=== PATIENT | female | born 1975 | race African-American/Black ===

== ENCOUNTER 2016-08-14 14:10 | Emergency (ER) | payer OTHER ==
[~2016-08-14] VITALS: Ht 165.1 cm; Wt 54.4 kg
[~2016-08-14 14:10] MED LIST: ASPIRIN81 MG ORAL; ATARAX50 MG ORAL; DOCUSATE SODIU100 MG ORAL; FEOSOL325 MG ORAL; FEOSOL325 MG PO; HYDROMORPHONE HC2 M1 PO; LISINOPRIL10 MG ORAL; LISINOPRIL2.5 MG ORAL; LISINOPRIL20 MG ORAL; PLAQUENIL200 MG ORAL; PRAVACHOL20 MG ORAL; PREDNISONE10 MG ORAL; PREDNISONE20 MG ORAL; SENOKOT1 TAB ORAL; TRAMADOL HCL50 MG ORAL; TYLENOL325 MG ORAL; TYLENOL650 MG/20. ORAL
--- NOTE | 2016-08-14 14:14 | Emergency Room Report ---
History of Present Illness General Chief Complaint: Dyspnea/Respdistress Source: Patient Present Illness HPI The patient presents with dyspnea exertion orthopnea and some resting shortness of breath. She has a history of congestive heart failure she was seen at [facility] few days ago. She's been admitted to the hospital for this in the past. At that time she had a lot of joint pain and also dyspnea. Denies any swelling or mass or calf pain. She's not had a fever or productive cough. Is a slight amount of chest pain at this time that is constant and more pressure. Not taking medication for lupus. She complains she can't sleep because of this problem. Anxious. No fevers, productive cough. No dysuria, NVD. Appetite has been poor. She admits to smoking but denies drugs (see tox). Allergies: Coded Allergies: MORPHINE (Unverified Adverse Reaction, Unknown, 08/14/16) Uncoded Allergies: MORPHINE? (Allergy, Unknown, 08/14/16) Patient History Past Medical History: see triage record Social History: Reports: drug use - denies but see tox, smoking Social History Narrative at home Reviewed Nursing Documentation: PMH: Agreed, PSxH: Agreed Nursing Documentation-PMH Past Medical History: No History, Except For Hx Hypertension: Yes Hx Asthma: Yes Hx Cancer: No Hx Gastrointestinal Problems: No Hx Neurological Problems: No Review of Systems All Other Systems: negative except mentioned in HPI Physical Exam Vital Signs Date Time Temp Pulse Resp B/P Pulse Ox O2 Delivery O2 Flow Rate FiO2 08/14/16 14:00 98.2 76 16 168/122 97 Room Air Sp02 EP Interpretation: reviewed, normal General Appearance: well appearing, no apparent distress, GCS 15 Head: normocephalic, other - old forehead scars Eyes: bilateral eye PERRL, bilateral eye normal inspection ENT: moist mucus membranes Neck: supple Respiratory: no respiratory distress, crackles, rales Cardiovascular #1: regular rate, rhythm, no JVD Cardiovascular #2: 2+ radial (R) Gastrointestinal: normal inspection, normal bowel sounds, non tender, no mass, non-distended Musculoskeletal: back normal, gait/station normal, normal range of motion Neurologic: alert, oriented x3, grossly normal Psychiatric: no suicidal/homicidal ideation, anxious Skin: normal inspection, warm/dry Medical Decision Making Diagnostic Impression: Primary Impression: CHF (congestive heart failure) Qualified Codes: I50.33 - Acute on chronic diastolic (congestive) heart failure Additional Impressions: Polysubstance abuse HTN (hypertension) Qualified Codes: I10 - Essential (primary) hypertension ER Course Patient presents with dyspnea and chest pain. She has a history of heart failure. Differential includes bronchitis, viral syndrome, congestive heart failure, acute myocardial infarction, acute coronary syndrome amongst others. This could also be pericarditis associated with lupus. Emergent evaluation is undertaken with EKG, chest x-ray, labs. The patient will be treated initially with nitroglycerin paste and fentanyl. CXR with CHF and inc cor. + drug screen. Lasix ordered. HTN noted and lisinopril ordered. Discussed abuse with patient. Mostly denial. Accepted by Dr. Rehman at [facility]. Transfer. Laboratory Tests Test 08/14/16 14:17 White Blood Count 3.3 K/UL (4.8-10.8) L Red Blood Count 3.81 M/UL (4.20-5.40) L Hemoglobin 8.0 G/DL (12.0-16.0) L Hematocrit 27.7 % (37.0-47.0) L Mean Corpuscular Volume 73 FL (80-99) L Mean Corpuscular Hemoglobin 21.0 PG (27.0-31.0) L Mean Corpuscular Hemoglobin Concent 28.9 G/DL (32.0-36.0) L Red Cell Distribution Width 17.4 % (11.6-14.8) H Platelet Count 250 K/UL (150-450) Mean Platelet Volume 8.6 FL (6.5-10.1) Neutrophils (%) (Auto) % (45.0-75.0) Lymphocytes (%) (Auto) % (20.0-45.0) Monocytes (%) (Auto) % (1.0-10.0) Eosinophils (%) (Auto) % (0.0-3.0) Basophils (%) (Auto) % (0.0-2.0) Differential Total Cells Counted 100 Neutrophils % (Manual) 63 % (45-75) Lymphocytes % (Manual) 30 % (20-45) Monocytes % (Manual) 4 % (1-10) Eosinophils % (Manual) 3 % (0-3) Basophils % (Manual) 0 % (0-2) Band Neutrophils 0 % (0-8) Platelet Estimate Adequate Platelet Morphology Normal Hypochromasia 2+ Anisocytosis 2+ Microcytosis 1+ Ovalocytes Occasional Prothrombin Time 10.7 SEC (9.30-11.50) Prothrombin Time INR 1.1 (0.9-1.1) PTT 25 SEC (23-33) Urine Color Red Urine Appearance Very cloudy Urine pH 6 (4.5-8.0) Urine Specific D[place]el 1.015 (1.005-1.035) Urine Protein 4+ (NEGATIVE) H Urine Glucose (UA) Negative (NEGATIVE) Urine Ketones Negative (NEGATIVE) Urine Occult Blood 5+ (NEGATIVE) H Urine Nitrite Negative (NEGATIVE) Urine Bilirubin Negative (NEGATIVE) Urine Urobilinogen Normal MG/DL (0.0-1.0) Urine Leukocyte Esterase 1+ (NEGATIVE) H Urine RBC Tntc /HPF (0 - 2) H Urine WBC 2-4 /HPF (0 - 2) Urine Squamous Epithelial Cells None /LPF (NONE/OCC) Urine Bacteria Few /HPF (NONE) Urine HCG, Qualitative Negative Sodium Level 141 mEQ/L (135-145) Potassium Level 4.0 mEQ/L (3.4-4.9) Chloride Level 102 mEQ/L (98-107) Carbon Dioxide Level 24 mEQ/L (20-30) Anion Gap 15 (5-15) Blood Urea Nitrogen 22 mg/dL (7-23) Creatinine 0.9 mg/dL (0.5-0.9) Estimate Glomerular Filtration Rate > 60 mL/min (>60) Glucose Level 104 mg/dL (74-106) Calcium Level 8.5 mg/dL (8.6-10.2) L Total Bilirubin < 0.2 mg/dL (0.0-1.2) Aspartate Amino Transferase (AST) 84 U/L (5-40) H Alanine Aminotransferase (ALT) 56 U/L (3-33) H Alkaline Phosphatase 124 U/L (35-104) H Total Creatine Kinase 51 U/L (26-140) Troponin I < 0.30 ng/mL (<=0.30) Pro-B-Type Natriuretic Peptide 3680 pg/mL (0-125) H Total Protein 7.3 g/dL (6.6-8.7) Albumin 3.0 g/dL (3.5-5.2) L Globulin 4.3 g/dL Albumin/Globulin Ratio 0.6 (1.0-2.7) L Urine Opiates Screen Negative (NEGATIVE) Urine Barbiturates Screen Negative (NEGATIVE) Phencyclidine (PCP) Screen Positive (NEGATIVE) H Urine Amphetamines Screen Negative (NEGATIVE) Urine Benzodiazepines Screen Negative (NEGATIVE) Urine Cocaine Screen Positive (NEGATIVE) H Urine Marijuana (THC) Screen Negative (NEGATIVE) EKG Diagnostic Results Rate: normal Rhythm: NSR ST Segments: no acute changes - NSSTTW changes Rhythm Strip Diag. Results EP Interpretation: yes Rhythm: NSR, no PVC's, no ectopy Chest X-Ray Diagnostic Results EP Interpretation: Yes Findings: no effusion, no pneumothorax, other - CHF and inc cor Number of Views: 1 Last Vital Signs Date Time Temp Pulse Resp B/P Pulse Ox O2 Delivery O2 Flow Rate FiO2 08/14/16 17:25 98.2 82 24 150/102 100 Room Air Status: improved Disposition: XFER [facility] - [facility] Condition: Serious - but stable for transfer Dada Best M.D. Aug 14, 2016 14:14
[2016-08-14 14:15] VITALS: BP 165/114
[2016-08-14] MEDS ORDERED: fentaNYL 100 mcg/2 mL IV ONE ×2 (14:15→16:15)
[2016-08-14] MEDS ORDERED: Nitroglycerin 2% oint pkt TOPIC ONE (14:15)
[2016-08-14 14:29] LABS: MEAN CORPUSCULAR HGB CONC 28.9 G/DL (32.0-36.0); MEAN CORPUSCULAR VOLUME 73 FL (80-99); MEAN PLATELET VOLUME 8.6 FL (6.5-10.1); PLATELET COUNT 250 K/UL (150-450); RED BLOOD COUNT 3.81 M/UL (4.20-5.40); RED CELL DISTRIBUTION WIDTH 17.4 % (11.6-14.8); WHITE BLOOD COUNT 3.3 K/UL (4.8-10.8)
[2016-08-14 14:40] LABS: INR 1.1 (0.9-1.1); PROTHROMBIN TIME 10.7 SEC (9.30-11.50)
[2016-08-14 14:44] LABS: ALANINE AMINOTRANSFERASE 56 U/L (3-33); ALBUMIN/GLOBULIN RATIO 0.6 (1.0-2.7); ANION GAP 15 (5-15); ASPARTATE AMINO TRANSFERASE 84 U/L (5-40); CALCIUM 8.5 mg/dL (8.6-10.2); CARBON DIOXIDE 24 mEQ/L (20-30); CHLORIDE 102 mEQ/L (98-107); CREATININE 0.9 mg/dL (0.5-0.9); GLOMERULAR FILTRATION RATE > 60 mL/min (>60); HEMOLYSIS 1; SODIUM 141 mEQ/L (135-145); TOTAL PROTEIN 7.3 g/dL (6.6-8.7); TROPONIN I < 0.30 ng/mL (<=0.30)
[2016-08-14 15:09] LABS: BAND NEUTROPHILS % (MANUAL) 0 % (0-8); BASOPHILS % (MANUAL) 0 % (0-2); EOSINOPHILS % (MANUAL) 3 % (0-3); LYMPHOCYTES % (MANUAL) 30 % (20-45); NEUTROPHILS % (MANUAL) 63 % (45-75); PLATELET ESTIMATE ADEQUATE; PLATELET MORPHOLOGY NORMAL; TOTAL CELLS COUNTED 100
[2016-08-14 15:10] LABS: HYPOCHROMASIA 2+; MICROCYTES 1+
[2016-08-14 15:11] LABS: ANISOCYTOSIS 2+; OVALOCYTES OCCASIONAL
[2016-08-14] MEDS ORDERED: Lisinopril 10mg tab ORAL ONE (15:15)
[2016-08-14 15:36] LABS: APPEARANCE,URINE VERY CLOUDY; KETONES,URINE NEGATIVE (NEGATIVE); LEUKOCYTE ESTERASE ,URINE 1+ (NEGATIVE); NITRITE,URINE NEGATIVE (NEGATIVE); PH,URINE 6 (4.5-8.0); PROTEIN,URINE 4+ (NEGATIVE); UROBILINOGEN,URINE NORMAL MG/DL (0.0-1.0)
[2016-08-14 15:52] LABS: RBC,URINE TNTC /HPF (0 - 2)
[2016-08-14 15:53] LABS: BACTERIA,URINE FEW /HPF
[2016-08-14 16:01] VITALS: BP 165/132
--- NOTE | 2016-08-14 16:30 | Diagnostic Imaging Report ---
Indications: Shortness of breath Technique: Portable AP chest Findings: Comparison: 03/06/16 Cardiac silhouette remains enlarged. Pulmonary vascular redistribution, bilateral interstitial infiltrates, bibasal pleural effusions have increased. Increased prominence of right pleural fissure. Left lower lung linear density has decreased. IMPRESSION: Increase in bilateral congestive changes Decrease in left lower lung subsegmental atelectasis
[2016-08-14 17:13] VITALS: BP 150/102
[2016-08-14 17:25] VITALS: BP 150/102
--- NOTE | 2016-08-15 16:26 | Cardiology Report ---
APPROVED REPORT EKG Measurement Heart [id number] Normal sinus rhythm Possible Left atrial enlargement T wave abnormality, consider lateral ischemia Prolonged QT Abnormal ECG
== END 2016-08-14 17:25 | disposition short-term general hospital (02) ==
LOC: EDBD 14:10 → EMR 14:45
DX: I50.33 Acute on chronic diastolic (congestive) heart failure (principal); I10 Essential (primary) hypertension; F19.10 Other psychoactive substance abuse, uncomplicated; R07.9 Chest pain, unspecified; Z88.6 Allergy status to analgesic agent; J45.909 Unspecified asthma, uncomplicated; F17.200 Nicotine dependence, unspecified, uncomplicated
CPT/HCPCS: 36415; 71010; 80053; 80300; 81003; 81025; 82550; 83880; 84484; 85007; 85025; 85610; 85730; 93005; 96374; 96375; 99285; J1940; J3010

== ENCOUNTER 2016-10-08 15:32 | Inpatient (IN) | payer OTHER ==
[~2016-10-08] VITALS: Ht 167.6 cm; Wt 60.3 kg
[2016-10-08] MEDS ORDERED: Nitroglycerin Subl 0.4mg tab (Bottle Of 25) SL PRN ×2 (16:00→20:30)
[2016-10-08] MEDS ORDERED: Aspirin Baby 81mg ORAL ONE (16:00)
[2016-10-08 16:16] LABS: BASOPHILS % (AUTO) 0.4 % (0.0-2.0); EOSINOPHILS % (AUTO) 1.1 % (0.0-3.0); LYMPHOCYTES % (AUTO) 10.3 % (20.0-45.0); MEAN CORPUSCULAR HEMOGLOBIN 21.5 PG (27.0-31.0); MEAN CORPUSCULAR HGB CONC 29.8 G/DL (32.0-36.0); MEAN CORPUSCULAR VOLUME 72 FL (80-99); MEAN PLATELET VOLUME 7.8 FL (6.5-10.1); MONOCYTES % (AUTO) 3.7 % (1.0-10.0); NEUTROPHILS % (AUTO) 84.6 % (45.0-75.0); PLATELET COUNT 280 K/UL (150-450); RED BLOOD COUNT 4.06 M/UL (4.20-5.40); RED CELL DISTRIBUTION WIDTH 17.2 % (11.6-14.8); WHITE BLOOD COUNT 6.1 K/UL (4.8-10.8)
[2016-10-08 16:22] VITALS: BP 192/120
[2016-10-08 16:23] LABS: TROPONIN I < 0.30 ng/mL (<=0.30)
[2016-10-08 16:26] LABS: ALANINE AMINOTRANSFERASE 37 U/L (3-33); ALBUMIN/GLOBULIN RATIO 0.7 (1.0-2.7); ANION GAP 14 (5-15); ASPARTATE AMINO TRANSFERASE 32 U/L (5-40); CARBON DIOXIDE 24 mEQ/L (20-30); CHLORIDE 102 mEQ/L (98-107); CREATININE 1.1 mg/dL (0.5-0.9); GLOMERULAR FILTRATION RATE > 60 mL/min (>60); HEMOLYSIS 1; POTASSIUM 3.9 mEQ/L (3.4-4.9); SODIUM 140 mEQ/L (135-145); TOTAL PROTEIN 6.1 g/dL (6.6-8.7)
[2016-10-08] MEDS ORDERED: LORazepam Inj 2mg/ml 1ml IV ONE ×2 (16:30→19:30)
[2016-10-08 16:37] LABS: CKMB 2.4 ng/mL (< 3.8)
--- NOTE | 2016-10-08 16:40 | Emergency Room Report ---
History of Present Illness General Chief Complaint: Chest Pain Source: Patient Present Illness HPI Patient is a 41-year-old female who presented after increased chest pain. Patient gradual onset of symptoms of the past few hours. Patient stated that she woke up approximately 7 AM with chest pain. Patient had prior history of cocaine induced chest pain as well as congestive heart failure. Patient prior history of anemia secondary to lupus. The patient reported being noncompliant with her medications. Patient stated that she recently been on a diuretic in the past. She denied taking her blood pressure medications Allergies: Coded Allergies: MORPHINE (Unverified Adverse Reaction, Unknown, 08/14/16) Patient History Past Medical History: see triage record Now: No Reviewed Nursing Documentation: PMH: Agreed, PSxH: Agreed Nursing Documentation-PMH Hx Cardiac Problems: Yes Hx Hypertension: Yes Hx Pacemaker: No Hx Asthma: No Hx Diabetes: No Hx Cancer: No Hx Gastrointestinal Problems: No Hx Dialysis: No History Of Psychiatric Problem: No Hx Neurological Problems: No Hx Cerebrovascular Accident: No Hx Seizures: No Review of Systems All Other Systems: negative except mentioned in HPI Physical Exam Vital Signs Date Time Temp Pulse Resp B/P Pulse Ox O2 Delivery O2 Flow Rate FiO2 10/08/16 15:43 99.0 92 16 180/103 98 Room Air Sp02 EP Interpretation: reviewed, normal General Appearance: normal inspection, well appearing, no apparent distress, alert, GCS 15, non-toxic Head: atraumatic ENT: normal ENT inspection, hearing grossly normal, normal voice Neck: normal inspection, full range of motion, supple, no bony tend Respiratory: normal inspection, no respiratory distress, no retraction, rales Cardiovascular #1: regular rate, rhythm, no edema Gastrointestinal: normal inspection, normal bowel sounds, non tender, soft, no guarding, no hernia Genitourinary: no CVA tenderness Musculoskeletal: normal inspection, back normal, normal range of motion Neurologic: normal inspection, alert, oriented x3, 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, 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 A chest after one view interpreted by me showed cardiac enlargement with fluid in the fissure there is no evident mediastinal widening. Patient was given IV Lasix as well as nitroglycerin. The patient's urine drug screen was noted be positive for cocaine as well as PCP. The patient was given nitrates as well as aspirin. The patient noted have evidence of cardiac failure on chest x-ray. The patient was given IV Lasix for fluid overload. Laboratory testing was notable for anemia which is unchanged from patient's previous. The patient had additional IV doses of Lasix and Ativan ordered which the patient refused . patient discussed with Dr. mejia for inpatient management of patient's congestive heart failure as well as Uncontrolled hypertension. Labs Test 10/08/16 15:50 White Blood Count 6.1 K/UL (4.8-10.8) Red Blood Count 4.06 M/UL (4.20-5.40) Hemoglobin 8.7 G/DL (12.0-16.0) Hematocrit 29.3 % (37.0-47.0) Mean Corpuscular Volume 72 FL (80-99) Mean Corpuscular Hemoglobin 21.5 PG (27.0-31.0) Mean Corpuscular Hemoglobin Concent 29.8 G/DL (32.0-36.0) Red Cell Distribution Width 17.2 % (11.6-14.8) Platelet Count 280 K/UL (150-450) Mean Platelet Volume 7.8 FL (6.5-10.1) Neutrophils (%) (Auto) 84.6 % (45.0-75.0) Lymphocytes (%) (Auto) 10.3 % (20.0-45.0) Monocytes (%) (Auto) 3.7 % (1.0-10.0) Eosinophils (%) (Auto) 1.1 % (0.0-3.0) Basophils (%) (Auto) 0.4 % (0.0-2.0) Urine HCG, Qualitative Negative Sodium Level 140 mEQ/L (135-145) Potassium Level 3.9 mEQ/L (3.4-4.9) Chloride Level 102 mEQ/L (98-107) Carbon Dioxide Level 24 mEQ/L (20-30) Anion Gap 14 (5-15) Blood Urea Nitrogen 21 mg/dL (7-23) Creatinine 1.1 mg/dL (0.5-0.9) Estimat Glomerular Filtration Rate > 60 mL/min (>60) Glucose Level 149 mg/dL (74-106) Calcium Level 8.0 mg/dL (8.6-10.2) Total Bilirubin < 0.2 mg/dL (0.0-1.2) Aspartate Amino Transf (AST/SGOT) 32 U/L (5-40) Alanine Aminotransferase (ALT/SGPT) 37 U/L (3-33) Alkaline Phosphatase 148 U/L (35-104) Total Creatine Kinase 105 U/L (26-140) Creatine Kinase MB 2.4 ng/mL (< 3.8) Creatine Kinase MB Relative Index 2.2 Troponin I < 0.30 ng/mL (<=0.30) Pro-B-Type Natriuretic Peptide 3080 pg/mL (0-125) Total Protein 6.1 g/dL (6.6-8.7) Albumin 2.7 g/dL (3.5-5.2) Globulin 3.4 g/dL Albumin/Globulin Ratio 0.7 (1.0-2.7) Urine Opiates Screen Negative (NEGATIVE) Urine Barbiturates Screen Negative (NEGATIVE) Phencyclidine (PCP) Screen Positive (NEGATIVE) Urine Amphetamines Screen Negative (NEGATIVE) Urine Benzodiazepines Screen Negative (NEGATIVE) Urine Cocaine Screen Positive (NEGATIVE) Urine Marijuana (THC) Screen Negative (NEGATIVE) EKG Diagnostic Results Rate: normal Rhythm: NSR ST Segments: other - lateral t wave inversion Rhythm Strip Diag. Results EP Interpretation: yes Rhythm: NSR, no PVC's, no ectopy Chest X-Ray Diagnostic Results EP Interpretation: Yes Findings: no effusion, no pneumothorax, other - cardiomegaly Number of Views: 1 Last Vital Signs Date Time Temp Pulse Resp B/P Pulse Ox O2 Delivery O2 Flow Rate FiO2 10/08/16 16:22 98.0 78 18 192/120 98 Room Air Status: unchanged Disposition: ADMITTED INPATIENT Condition: Serious Referrals: CIARA MAGANA,REFERRING (PCP) Jaime Paul October 08, 2016 16:40
[2016-10-08 19:26] VITALS: BP 163/116
[2016-10-08] MEDS ORDERED: Solu-MEDROL 125mg Inj IVP ONE (19:30)
[2016-10-08] MEDS ORDERED: Ketorolac 30mg Inj IV PRN (20:30)
[2016-10-08] MEDS ORDERED: Enalaprilat 2.5mg/2ml Inj IV PRN (20:30)
[2016-10-08] MEDS ORDERED: DuoNeb 0.5-3(2.5)mg/3ml neb HHN PRN (20:30)
[2016-10-08] MEDS ORDERED: Diltiazem 25mg/5ml IV PRN (20:30)
[2016-10-08] MEDS ORDERED: Miralax 17gm pkt ORAL PRN (20:30)
[2016-10-08 20:55] VITALS: BP 161/97
[2016-10-08 21:05] VITALS: BP 156/116
[2016-10-08 21:51] LABS: TROPONIN I < 0.30 ng/mL (<=0.30)
--- NOTE | 2016-10-08 22:34 | History and Physical ---
History of Present Illness General Date patient seen: October 08, 2016 Reason for Hospitalization: Chest Pain Present Illness HPI 41-year-old female wtih hx of CHF, COPD, Lupus, drug abuse presented to Er with CC of increased chest pain with gradual onset of symptoms of the past few hours. Patient prior history of anemia secondary to lupus. She reported being noncompliant with her medications. Patient stated that she recently been on a diuretic in the past. She denied taking her blood pressure medications Allergies: Coded Allergies: No Known Allergies (Unverified , 10/08/16) Medication History Scheduled Aspirin* (Aspirin*), 81 MG ORAL DAILY, (Reported) Docusate Sodium* (Docusate Sodium*), 20 MG ORAL DAILY, (Reported) Ferrous Sulfate (Feosol), 325 MG PO TID, (Reported) Hydroxychloroquine Sulfate* (Plaquenil*), 2 MG ORAL BID, (Reported) Lisinopril* (Lisinopril*), 10 MG ORAL DAILY, (Reported) Pravastatin Sod* (Pravachol*), 20 MG ORAL BEDTIME, (Reported) Prednisone* (Prednisone*), 20 MG ORAL DAILY, (Reported) Sennosides (Senna-Gen), 1 TAB ORAL BID, (Reported) Scheduled PRN Hydromorphone Hcl (Hydromorphone Hcl), 2 MG PO Q4HR PRN for For Pain, (Reported) Hydroxyzine HCl (Hydroxyzine Pamoate), 50 MG ORAL DAILY PRN for Itching, ( Reported) Tramadol Hcl* (Ultram*), 50 MG ORAL Q6H PRN for For Pain, (Reported) Patient History Healthcare decision maker Resuscitation status Advanced Directive on File Past Medical/Surgical History Past Medical/Surgical History: (1) CHF (congestive heart failure) (2) Drug-seeking behavior (3) Anemia (4) Lupus arthritis (5) COPD (chronic obstructive pulmonary disease) (6) Cardiomyopathy Review of Systems Respiratory: Reports: shortness of breath Cardiovascular: Reports: chest pain All Other Systems: negative except mentioned in HPI Physical Exam General Appearance: WD/WN Lines, tubes and drains: peripheral HEENT: normocephalic, atraumatic, PERRL Neck: non-tender Respiratory/Chest: chest wall non-tender, lungs clear Cardiovascular/Chest: normal peripheral pulses, normal rate Abdomen: normal bowel sounds Genitourinary/Rectal: normal genital exam Last 24 Hour Vital Signs Date Time Temp Pulse Resp B/P Pulse Ox O2 Delivery O2 Flow Rate FiO2 10/08/16 21:05 99.5 101 21 156/116 96 Room Air 10/08/16 20:55 99 22 161/97 96 Room Air 10/08/16 20:55 98.0 99 22 161/97 96 Room Air 10/08/16 19:26 98.0 107 24 163/116 99 Room Air 10/08/16 16:22 98.0 78 18 192/120 98 Room Air 10/08/16 16:20 190/110 10/08/16 15:48 92 20 10/08/16 15:43 99.0 92 16 180/103 98 Room Air Laboratory Tests Test 10/08/16 15:50 10/08/16 21:19 White Blood Count 6.1 K/UL (4.8-10.8) Red Blood Count 4.06 M/UL (4.20-5.40) L Hemoglobin 8.7 G/DL (12.0-16.0) L Hematocrit 29.3 % (37.0-47.0) L Mean Corpuscular Volume 72 FL (80-99) L Mean Corpuscular Hemoglobin 21.5 PG (27.0-31.0) L Mean Corpuscular Hemoglobin Concent 29.8 G/DL (32.0-36.0) L Red Cell Distribution Width 17.2 % (11.6-14.8) H Platelet Count 280 K/UL (150-450) Mean Platelet Volume 7.8 FL (6.5-10.1) Neutrophils (%) (Auto) 84.6 % (45.0-75.0) H Lymphocytes (%) (Auto) 10.3 % (20.0-45.0) L Monocytes (%) (Auto) 3.7 % (1.0-10.0) Eosinophils (%) (Auto) 1.1 % (0.0-3.0) Basophils (%) (Auto) 0.4 % (0.0-2.0) Urine HCG, Qualitative Negative Sodium Level 140 mEQ/L (135-145) Potassium Level 3.9 mEQ/L (3.4-4.9) Chloride Level 102 mEQ/L (98-107) Carbon Dioxide Level 24 mEQ/L (20-30) Anion Gap 14 (5-15) Blood Urea Nitrogen 21 mg/dL (7-23) Creatinine 1.1 mg/dL (0.5-0.9) H Estimat Glomerular Filtration Rate > 60 mL/min (>60) Glucose Level 149 mg/dL (74-106) H Calcium Level 8.0 mg/dL (8.6-10.2) L Total Bilirubin < 0.2 mg/dL (0.0-1.2) Aspartate Amino Transf (AST/SGOT) 32 U/L (5-40) Alanine Aminotransferase (ALT/SGPT) 37 U/L (3-33) H Alkaline Phosphatase 148 U/L (35-104) H Total Creatine Kinase 105 U/L (26-140) Creatine Kinase MB 2.4 ng/mL (< 3.8) Creatine Kinase MB Relative Index 2.2 Troponin I < 0.30 ng/mL (<=0.30) < 0.30 ng/mL (<=0.30) Pro-B-Type Natriuretic Peptide 3080 pg/mL (0-125) H Total Protein 6.1 g/dL (6.6-8.7) L Albumin 2.7 g/dL (3.5-5.2) L Globulin 3.4 g/dL Albumin/Globulin Ratio 0.7 (1.0-2.7) L Urine Opiates Screen Negative (NEGATIVE) Urine Barbiturates Screen Negative (NEGATIVE) Phencyclidine (PCP) Screen Positive (NEGATIVE) H Urine Amphetamines Screen Negative (NEGATIVE) Urine Benzodiazepines Screen Negative (NEGATIVE) Urine Cocaine Screen Positive (NEGATIVE) H Urine Marijuana (THC) Screen Negative (NEGATIVE) Height (Feet): 5 Height (Inches): 6.00 Weight (Pounds): 150 Medications Current Medications Medications (Trade) Dose Ordered Sig/Gurmeet Route PRN Reason Start Time Stop Time Status Last Admin Dose Admin Acetaminophen (Tylenol) 650 mg Q4H PRN ORAL FEVER 10/08/16 20:30 11/07/16 20:29 Albuterol/ Ipratropium (DuoNeb 0.5-3(2.5)mg/3ml) 3 ml Q4H PRN HHN Shortness of Breath 10/08/16 20:30 10/13/16 20:29 Aspirin (ASA) 162 mg DAILY ORAL 10/09/16 09:00 11/08/16 08:59 Diltiazem HCl (Cardizem) 10 mg Q1H PRN IV HR > 120 10/08/16 20:30 11/07/16 20:29 Enalaprilat (Vasotec) 2.5 mg Q6H PRN IV sbp more than 160 10/08/16 20:30 11/07/16 20:29 Heparin Sodium (Porcine) (Heparin 5000 units/ml) 5,000 units EVERY 12 HOURS SUBQ 10/08/16 21:00 11/07/16 20:59 Lisinopril (Zestril) 10 mg DAILY ORAL 10/09/16 09:00 11/08/16 08:59 Nitroglycerin (Ntg) 0.4 mg Q5MIN X 3 DOSES PRN SL Prn Chest Pain 10/08/16 20:30 11/07/16 20:29 Ondansetron HCl (Zofran) 4 mg Q6H PRN IVP Nausea & Vomiting 10/08/16 20:30 11/07/16 20:29 Pantoprazole (Protonix) 40 mg DAILY ORAL 10/09/16 09:00 11/08/16 08:59 Polyethylene Glycol (Miralax) 17 gm DAILYPRN PRN ORAL Constipation 10/08/16 20:30 11/07/16 20:29 Pravastatin Sodium (Pravachol) 20 mg BEDTIME ORAL 10/08/16 21:00 11/07/16 20:59 Prednisone (predniSONE) 20 mg DAILY ORAL 10/09/16 09:00 11/08/16 08:59 Temazepam (Restoril) 15 mg HSPRN PRN ORAL Insomnia 10/08/16 20:30 10/15/16 20:29 Tramadol HCl (Ultram) 50 mg Q6H PRN ORAL For Pain 10/08/16 20:30 10/15/16 20:29 UNV Assessment/Plan Problem List: (1) ACS (acute coronary syndrome) ICD Codes: I24.9 - Acute ischemic heart disease, unspecified SNOMED: 402383222 (2) Cardiomyopathy ICD Codes: I42.9 - Cardiomyopathy, unspecified SNOMED: 69304346 (3) CHF (congestive heart failure) ICD Codes: I50.9 - Heart failure, unspecified SNOMED: 37636948 (4) COPD (chronic obstructive pulmonary disease) ICD Codes: J44.9 - Chronic obstructive pulmonary disease, unspecified SNOMED: 87715869 (5) Polysubstance abuse ICD Codes: F19.10 - Other psychoactive substance abuse, uncomplicated SNOMED: 095995456 (6) Pulmonary hypertension ICD Codes: I27.2 - Other secondary pulmonary hypertension SNOMED: 96567369 Assessment/Plan diuretics echo cardiac evaluation anemia w/u TENA HUTCHISON October 08, 2016 22:34
[2016-10-08] MEDS: Heparin 5000 units/ml inj SUBQ SCH (23:22)
[2016-10-09] VITALS (7 sets, daily range): BP systolic 137–166; BP diastolic 87–103
[2016-10-09] MEDS: traMADol 50mg tab ORAL PRN ×2 (03:06→09:35)
--- NOTE | 2016-10-09 07:18 | Cardiology Progress Note ---
Assessment/Plan Assessment/Plan chf acute systolic dizziness described as imbalance hs of mild cm hx of pulm htn systemic htn anemia sle cociane abuse hs non compliance avoid bb acei fr bp control repeat echo diuretic fluid and na restriction diuresis venous duplex [id number] Objective Last 24 Hour Vital Signs Date Time Temp Pulse Resp B/P Pulse Ox O2 Delivery O2 Flow Rate FiO2 10/09/16 04:00 98.2 84 20 137/91 95 Room Air 10/09/16 00:00 98.8 88 21 144/87 95 Room Air 10/09/16 00:00 87 10/08/16 21:05 99.5 101 21 156/116 96 Room Air 10/08/16 21:02 99 10/08/16 20:55 99 22 161/97 96 Room Air 10/08/16 20:55 98.0 99 22 161/97 96 Room Air 10/08/16 19:26 98.0 107 24 163/116 99 Room Air 10/08/16 16:22 98.0 78 18 192/120 98 Room Air 10/08/16 16:20 190/110 10/08/16 15:48 92 20 10/08/16 15:43 99.0 92 16 180/103 98 Room Air Laboratory Tests Test 10/08/16 15:50 10/08/16 21:19 White Blood Count 6.1 K/UL (4.8-10.8) Red Blood Count 4.06 M/UL (4.20-5.40) L Hemoglobin 8.7 G/DL (12.0-16.0) L Hematocrit 29.3 % (37.0-47.0) L Mean Corpuscular Volume 72 FL (80-99) L Mean Corpuscular Hemoglobin 21.5 PG (27.0-31.0) L Mean Corpuscular Hemoglobin Concent 29.8 G/DL (32.0-36.0) L Red Cell Distribution Width 17.2 % (11.6-14.8) H Platelet Count 280 K/UL (150-450) Mean Platelet Volume 7.8 FL (6.5-10.1) Neutrophils (%) (Auto) 84.6 % (45.0-75.0) H Lymphocytes (%) (Auto) 10.3 % (20.0-45.0) L Monocytes (%) (Auto) 3.7 % (1.0-10.0) Eosinophils (%) (Auto) 1.1 % (0.0-3.0) Basophils (%) (Auto) 0.4 % (0.0-2.0) Urine HCG, Qualitative Negative Sodium Level 140 mEQ/L (135-145) Potassium Level 3.9 mEQ/L (3.4-4.9) Chloride Level 102 mEQ/L (98-107) Carbon Dioxide Level 24 mEQ/L (20-30) Anion Gap 14 (5-15) Blood Urea Nitrogen 21 mg/dL (7-23) Creatinine 1.1 mg/dL (0.5-0.9) H Estimat Glomerular Filtration Rate > 60 mL/min (>60) Glucose Level 149 mg/dL (74-106) H Calcium Level 8.0 mg/dL (8.6-10.2) L Total Bilirubin < 0.2 mg/dL (0.0-1.2) Aspartate Amino Transf (AST/SGOT) 32 U/L (5-40) Alanine Aminotransferase (ALT/SGPT) 37 U/L (3-33) H Alkaline Phosphatase 148 U/L (35-104) H Total Creatine Kinase 105 U/L (26-140) Creatine Kinase MB 2.4 ng/mL (< 3.8) Creatine Kinase MB Relative Index 2.2 Troponin I < 0.30 ng/mL (<=0.30) < 0.30 ng/mL (<=0.30) Pro-B-Type Natriuretic Peptide 3080 pg/mL (0-125) H Total Protein 6.1 g/dL (6.6-8.7) L Albumin 2.7 g/dL (3.5-5.2) L Globulin 3.4 g/dL Albumin/Globulin Ratio 0.7 (1.0-2.7) L Urine Opiates Screen Negative (NEGATIVE) Urine Barbiturates Screen Negative (NEGATIVE) Phencyclidine (PCP) Screen Positive (NEGATIVE) H Urine Amphetamines Screen Negative (NEGATIVE) Urine Benzodiazepines Screen Negative (NEGATIVE) Urine Cocaine Screen Positive (NEGATIVE) H Urine Marijuana (THC) Screen Negative (NEGATIVE) DAYNA JAUREGUI October 09, 2016 07:18
[2016-10-09 08:17] LABS: BASOPHILS % (AUTO) 0.4 % (0.0-2.0); EOSINOPHILS % (AUTO) 0.1 % (0.0-3.0); MEAN CORPUSCULAR HEMOGLOBIN 20.1 PG (27.0-31.0); MEAN CORPUSCULAR VOLUME 69 FL (80-99); MONOCYTES % (AUTO) 8.6 % (1.0-10.0); PLATELET COUNT 329 K/UL (150-450); RED BLOOD COUNT 4.53 M/UL (4.20-5.40); WHITE BLOOD COUNT 4.6 K/UL (4.8-10.8)
[2016-10-09 08:34] LABS: TROPONIN I < 0.30 ng/mL (<=0.30)
[2016-10-09 08:39] LABS: CHOLESTEROL/HDL RATIO 2.5 (3.3-4.4); CRP QUANT 0.7 mg/dL (< 0.5)
[2016-10-09 08:44] LABS: THYROID STIMULATING HORMONE 1.38 uIU/mL (0.300-4.500)
[2016-10-09] MEDS ORDERED: Lisinopril 10mg tab ORAL SCH (09:00)
[2016-10-09 09:06] LABS: INR 1.1 (0.9-1.1); PROTHROMBIN TIME 10.8 SEC (9.30-11.50)
[2016-10-09] MEDS: Aspirin Baby 81mg ORAL SCH (09:34)
[2016-10-09] MEDS: Lisinopril 20mg tab ORAL SCH (09:35)
[2016-10-09] MEDS: PredniSONE 20mg tab ORAL SCH (09:35)
[2016-10-09] MEDS: Heparin 5000 units/ml inj SUBQ SCH ×2 (09:36→20:28)
--- NOTE | 2016-10-09 11:35 | Pulmonology Progress Note ---
Assessment/Plan Problems: (1) ACS (acute coronary syndrome) (2) Cardiomyopathy (3) CHF (congestive heart failure) (4) COPD (chronic obstructive pulmonary disease) (5) Knee effusion, right (6) Pulmonary hypertension (7) Polysubstance abuse Assessment/Plan diuretics echo cardio evaluation Rheuma evaluation Subjective ROS Limited/Unobtainable: No Constitutional: Reports: no symptoms HEENT: Repors: no symptoms Allergies: Coded Allergies: No Known Allergies (Unverified , 10/08/16) Objective Last 24 Hour Vital Signs Date Time Temp Pulse Resp B/P Pulse Ox O2 Delivery O2 Flow Rate FiO2 10/09/16 10:34 98.0 10/09/16 09:35 149/98 10/09/16 07:55 98.0 74 20 149/98 98 Room Air 10/09/16 04:00 84 10/09/16 04:00 98.2 84 20 137/91 95 Room Air 10/09/16 00:00 98.8 88 21 144/87 95 Room Air 10/09/16 00:00 87 10/08/16 21:05 99.5 101 21 156/116 96 Room Air 10/08/16 21:02 99 10/08/16 20:55 99 22 161/97 96 Room Air 10/08/16 20:55 98.0 99 22 161/97 96 Room Air 10/08/16 19:26 98.0 107 24 163/116 99 Room Air 10/08/16 16:22 98.0 78 18 192/120 98 Room Air 10/08/16 16:20 190/110 10/08/16 15:48 92 20 10/08/16 15:43 99.0 92 16 180/103 98 Room Air General Appearance: cachetic HEENT: normocephalic, atraumatic Respiratory/Chest: chest wall non-tender, crackles/rales Cardiovascular: normal peripheral pulses, normal rate Extremities: other - right knee swelling Neurologic/Psychiatric: paper hanger II-XII grossly normal Laboratory Tests 10/08/16 15:50: White Blood Count 6.1, Red Blood Count 4.06L, Hemoglobin 8.7L, Hematocrit 29.3L , Mean Corpuscular Volume 72L, Mean Corpuscular Hemoglobin 21.5L, Mean Corpuscular Hemoglobin Concent 29.8L, Red Cell Distribution Width 17.2H, Platelet Count 280, Mean Platelet Volume 7.8, Neutrophils (%) (Auto) 84.6H, Lymphocytes (%) (Auto) 10.3L, Monocytes (%) (Auto) 3.7, Eosinophils (%) (Auto) 1.1, Basophils (%) (Auto) 0.4, Urine HCG, Qualitative Negative, Sodium Level 140 , Potassium Level 3.9, Chloride Level 102, Carbon Dioxide Level 24, Anion Gap 14 , Blood Urea Nitrogen 21, Creatinine 1.1H, Estimat Glomerular Filtration Rate > 60, Glucose Level 149H, Calcium Level 8.0L, Total Bilirubin < 0.2, Aspartate Amino Transf (AST/SGOT) 32, Alanine Aminotransferase (ALT/SGPT) 37H, Alkaline Phosphatase 148H, Total Creatine Kinase 105, Creatine Kinase MB 2.4, Creatine Kinase MB Relative Index 2.2, Troponin I < 0.30, Pro-B-Type Natriuretic Peptide 3080H, Total Protein 6.1L, Albumin 2.7L, Globulin 3.4, Albumin/Globulin Ratio 0.7L, Urine Opiates Screen Negative, Urine Barbiturates Screen Negative, Phencyclidine (PCP) Screen PositiveH, Urine Amphetamines Screen Negative, Urine Benzodiazepines Screen Negative, Urine Cocaine Screen PositiveH, Urine Marijuana (THC) Screen Negative 10/08/16 21:19: Troponin I < 0.30 10/09/16 07:10: White Blood Count 4.6L, Red Blood Count 4.53, Hemoglobin 9.1L, Hematocrit 31.4L , Mean Corpuscular Volume 69L, Mean Corpuscular Hemoglobin 20.1L, Mean Corpuscular Hemoglobin Concent 29.0L, Red Cell Distribution Width 17.0H, Platelet Count 329, Mean Platelet Volume 8.0, Neutrophils (%) (Auto) 78.0H, Lymphocytes (%) (Auto) 13.0L, Monocytes (%) (Auto) 8.6, Eosinophils (%) (Auto) 0.1, Basophils (%) (Auto) 0.4, Troponin I < 0.30, Prothrombin Time 10.8, Prothromb Time International Ratio 1.1, Activated Partial Thromboplast Time 26, C-Reactive Protein, Quantitative 0.7H, Triglycerides Level 54, Cholesterol Level 81, LDL Cholesterol 38L, HDL Cholesterol 32, Cholesterol/HDL Ratio 2.5L, Thyroid Stimulating Hormone (TSH) 1.380 Current Medications Medications (Trade) Dose Ordered Sig/Gurmeet Route PRN Reason Start Time Stop Time Status Last Admin Dose Admin Acetaminophen (Tylenol) 650 mg Q4H PRN ORAL FEVER 10/08/16 20:30 11/07/16 20:29 Albuterol/ Ipratropium (DuoNeb 0.5-3(2.5)mg/3ml) 3 ml Q4H PRN HHN Shortness of Breath 10/08/16 20:30 10/13/16 20:29 Aspirin (ASA) 162 mg DAILY ORAL 10/09/16 09:00 11/08/16 08:59 10/09/16 09:34 Diltiazem HCl (Cardizem) 10 mg Q1H PRN IV HR > 120 10/08/16 20:30 11/07/16 20:29 Enalaprilat (Vasotec) 2.5 mg Q6H PRN IV sbp more than 160 10/08/16 20:30 11/07/16 20:29 Furosemide (Lasix) 20 mg EVERY 12 HOURS IV 10/09/16 09:00 11/08/16 08:59 10/09/16 09:34 Heparin Sodium (Porcine) (Heparin 5000 units/ml) 5,000 units EVERY 12 HOURS SUBQ 10/08/16 21:00 11/07/16 20:59 10/09/16 09:36 Lisinopril (Prinivil) 20 mg DAILY ORAL 10/09/16 09:00 11/08/16 08:59 10/09/16 09:35 Nitroglycerin (Ntg) 0.4 mg Q5MIN X 3 DOSES PRN SL Prn Chest Pain 10/08/16 20:30 11/07/16 20:29 Ondansetron HCl (Zofran) 4 mg Q6H PRN IVP Nausea & Vomiting 10/08/16 20:30 11/07/16 20:29 Pantoprazole (Protonix) 40 mg DAILY ORAL 10/09/16 09:00 11/08/16 08:59 10/09/16 09:34 Polyethylene Glycol (Miralax) 17 gm DAILYPRN PRN ORAL Constipation 10/08/16 20:30 11/07/16 20:29 Pravastatin Sodium (Pravachol) 20 mg BEDTIME ORAL 5/22/17 21:00 11/07/16 20:59 10/08/16 23:17 Prednisone (predniSONE) 20 mg DAILY ORAL 10/09/16 09:00 11/08/16 08:59 10/09/16 09:35 Temazepam (Restoril) 15 mg HSPRN PRN ORAL Insomnia 10/08/16 20:30 10/15/16 20:29 Tramadol HCl (Ultram) 50 mg Q6H PRN ORAL For Pain 10/08/16 20:30 10/15/16 20:29 10/09/16 09:35 TENA HUTCHISON October 09, 2016 11:35
[2016-10-09] MEDS ORDERED: traMADol 50mg tab ORAL PRN (12:12)
--- NOTE | 2016-10-09 13:32 | Diagnostic Imaging Report ---
Indication: SOB Technique: One view of the chest Comparison: 08/14/2016 Findings: The heart is markedly enlarged. There is interstitial and alveolar edema which appears worse than on the prior study. There are small bilateral right greater than left pleural effusions, appearing similar to the prior exam. Impression: Cardiomegaly, with evidence of congestive heart failure and small bilateral pleural effusions
[2016-10-09] MEDS: HYDROmorphone 1mg/ml Carpuject IVP PRN ×3 (13:44→22:11)
--- NOTE | 2016-10-09 15:31 | Consultation ---
DATE OF CONSULTATION: 10/09/2016 CARDIOLOGY CONSULTATION CONSULTING PHYSICIAN: Oswaldo Quesada M.D. REFERRING PHYSICIAN: Suzanne Ricardo M.D. REASON FOR REFERRAL: Congestive heart failure. HISTORY OF PRESENT ILLNESS: This is a 41-year-old female, who presented to the hospital with increasing shortness of breath and dizziness. She tells me it is a sensation of going to fall one side. It has been going on since Saturday and has been waking up at night because of shortness of breath, unable to lie down flat because of shortness of breath and has palpitations and has at some point right-sided pain in the chest below the right breast. Dizziness is not a sensation of passing out, but given that if she does not sit at some point she is going to fall to the side. PAST MEDICAL HISTORY: Positive for history of congestive heart failure, systolic dysfunction, significant tricuspid regurgitation, pulmonary hypertension, systemic hypertension, lupus per history, and substance abuse history. She was last admitted here back in February of 2016, at which time she was discharged in cardiac medications. She does admit to not having taken cardiac medications at all. MEDICATIONS: Only for lupus. She admits not compliant with cardiac medication. ALLERGIES: The patient states she is allergic to morphine, but she is not sure. SOCIAL HISTORY: She smokes, drinks, and uses cocaine. REVIEW OF SYSTEMS: Gastrointestinal System: She has had some nausea and vomiting. She had some bloody stools at one time. Genitourinary System: Negative. Pulmonary System: Coughing. Constitutional System: No fevers or chills. Neurologic System: Sensation of feeling to fall to one side. PHYSICAL EXAMINATION: GENERAL: Shows a young female, in no respiratory distress. NECK: Supple. No jugular venous distention. LUNGS: Rather clear to auscultation and percussion. CARDIAC: S1 is normal. S2 is normal. Regular rate and rhythm. No heaves, thrills, or gallops noted. ABDOMEN: Soft and nontender. Positive bowel sounds. EXTREMITIES: There is no clubbing, cyanosis, nor is there any edema. NEUROLOGICAL: She is awake, alert, and responsive. LABORATORY AND DIAGNOSTIC DATA: Laboratory values, white count of 6, hemoglobin 8.7, and platelet count of 280,000. Sodium was 140, potassium 3.9, chloride 102, bicarbonate 24, BUN 21, creatinine 1.1, glucose of 149 and calcium is 8. Alkaline phosphatase is 148. Two sets of cardiac enzymes are negative. ProBNP is 3080. Albumin is 2.7. Toxicology screen positive for phencyclidine as well as cocaine. Urine is negative for test. EKG shows sinus rhythm, leftward axis, some T-wave inversions in 1, aVL, V5, and V6. EKG shows sinus rhythm, leftward axis, no significant ST and T wave abnormalities compared with her prior EKG 03/04/2016. Those changes are present before. Previous echocardiogram showed mild global hypokinesis with ejection fraction 45%. The patient attempted to undergo a perfusion imaging but apparently only had resting images performed during last hospitalization. No stress images were taken. Reportedly, she has significantly enlarged cardiac silhouette on chest x-ray, although I am unable to hold the study. ASSESSMENT: 1. Congestive heart failure. 2. History of left ventricular systolic dysfunction. 3. Cocaine abuse. 4. Alcoholism. 5. Lupus erythematosus. 6. Dizziness, possibly balance issues. 7. Noncompliance. PLAN: Dr. Ricardo, this patient was seen in cardiac consultation. She has had significant improvement. She needs to be on some KAREN inhibitors and beta-blockers, although with the use of cocaine and has been administered beta-blockers. She should be at least on a significant control of blood pressure. Latest blood pressure has been ranging to 156/116. She is positive for cocaine in her urine. Repeat echocardiogram will be ordered. Third set of cardiac enzymes will be ordered. EKG repeated, she has some pleuritic chest pain, right-sided, management of which I will leave her up to you and we will follow up on the echocardiogram. Venous duplex study will also be ordered. Oswaldo Quesada M.D. DR: Loree JOB#: [id number] CC:
--- NOTE | 2016-10-09 18:35 | Cardiology Report ---
APPROVED REPORT EKG Measurement Heart [id number] HI [id number] Normal sinus rhythm Possible Left atrial enlargement Left axis deviation Abnormal ECG
[2016-10-10] VITALS: BP 150/91
[2016-10-10] MEDS: HYDROmorphone 1mg/ml Carpuject IVP PRN ×5 (02:12→20:48)
[2016-10-10 04:00] VITALS: BP 146/105
[2016-10-10] MEDS: PredniSONE 20mg tab ORAL SCH (08:13)
[2016-10-10] MEDS: Lisinopril 20mg tab ORAL SCH (08:13)
[2016-10-10] MEDS: Aspirin Baby 81mg ORAL SCH (08:14)
[2016-10-10] MEDS: Heparin 5000 units/ml inj SUBQ SCH ×2 (08:16→20:53)
[2016-10-10 08:19] VITALS: BP 153/95
[2016-10-10 08:19] LABS: BASOPHILS % (AUTO) 0.2 % (0.0-2.0); EOSINOPHILS % (AUTO) 1.1 % (0.0-3.0); LYMPHOCYTES % (AUTO) 28.3 % (20.0-45.0); MEAN CORPUSCULAR HEMOGLOBIN 20.2 PG (27.0-31.0); MEAN CORPUSCULAR HGB CONC 28.9 G/DL (32.0-36.0); MEAN CORPUSCULAR VOLUME 70 FL (80-99); MEAN PLATELET VOLUME 8.6 FL (6.5-10.1); MONOCYTES % (AUTO) 4.7 % (1.0-10.0); NEUTROPHILS % (AUTO) 65.7 % (45.0-75.0); PLATELET COUNT 294 K/UL (150-450); RED BLOOD COUNT 4.13 M/UL (4.20-5.40); RED CELL DISTRIBUTION WIDTH 17.3 % (11.6-14.8); WHITE BLOOD COUNT 3.8 K/UL (4.8-10.8)
[2016-10-10 08:29] LABS: ALANINE AMINOTRANSFERASE 26 U/L (3-33); ALBUMIN/GLOBULIN RATIO 0.7 (1.0-2.7); ANION GAP 11 (5-15); ASPARTATE AMINO TRANSFERASE 21 U/L (5-40); CALCIUM 8.1 mg/dL (8.6-10.2); CARBON DIOXIDE 27 mEQ/L (20-30); CHLORIDE 99 mEQ/L (98-107); CREATININE 1.1 mg/dL (0.5-0.9); GLOMERULAR FILTRATION RATE > 60 mL/min (>60); HEMOLYSIS 0; MAGNESIUM 1.5 mg/dL (1.7-2.5); POTASSIUM 3.8 mEQ/L (3.4-4.9); SODIUM 137 mEQ/L (135-145); TOTAL PROTEIN 6.3 g/dL (6.6-8.7)
[2016-10-10 08:34] LABS: TROPONIN I < 0.30 ng/mL (<=0.30)
--- NOTE | 2016-10-10 10:55 | Cardiology Report ---
APPROVED REPORT EXAM: Two-dimensional and M-mode echocardiogram with Doppler and color Doppler. INDICATION Left Ventricular Function M-Mode DIMENSIONS IVSd1.8 (0.7-1.1cm)Left Atrium (MM)4.9 (1.6-4.0cm) LVDd5.7 (3.5-5.6cm)Aortic Root3.6 (2.0-3.7cm) PWd1.3 (0.7-1.1cm)Aortic Cusp Exc.2.0 (1.5-2.0cm) LVDs4.3 (2.5-4.0cm) PWs2.0 cm Moderate left ventricular enlargement. Low normal left ventricular systolic function and wall motion. Left ventricular ejection fraction estimated to be 50 %. Mild left ventricular hypertrophy. No evidence of pericardial fat or effusion. Severe left atrial enlargement by 2D. Mild right cardiac chamber sizes are within normal limits. Mild focal aortic valve sclerosis with adequate cusp excursion. Mildly thickened mitral valve leaflets with normal excursion. Mild mitral annulus and aortic root calcification. Normal pulmonic valve structure. Normal tricuspid valve structure. IVC dilated at 2.4 cm with physiologic collapse, estimated RAP is 15 mmHg. A color flow and spectral Doppler study was performed and revealed: Trace aortic regurgitation. Mild mitral regurgitation. Mitral diastolic velocitiesare normal Mild tricuspid regurgitation. Tricuspid systolic velocities suggests peak right ventricular systolic pressure of 55 mmHg. consistent with moderate pulmonary hypertension. Mild to moderate pulmonic regurgitation present.
[2016-10-10 11:45] VITALS: BP 148/92
--- NOTE | 2016-10-10 13:13 | Pulmonology Progress Note ---
Assessment/Plan Problems: (1) CHF (congestive heart failure) (2) ACS (acute coronary syndrome) (3) Cardiomyopathy (4) COPD (chronic obstructive pulmonary disease) (5) Knee effusion, right (6) Pulmonary hypertension (7) Polysubstance abuse Assessment/Plan diuretics, increase to 40 TID echo noted, EF of 50% cardio evaluation appreciated awaiting Rheuma evaluation repeat cxr and bnp in am dc home in am Subjective ROS Limited/Unobtainable: No Interval Events: still sob, but improved Allergies: Coded Allergies: No Known Allergies (Unverified , 10/08/16) Objective Last 24 Hour Vital Signs Date Time Temp Pulse Resp B/P Pulse Ox O2 Delivery O2 Flow Rate FiO2 10/10/16 13:00 97.2 10/10/16 11:45 97.2 85 18 148/92 100 Room Air 10/10/16 11:36 76 10/10/16 08:19 97.5 70 18 153/95 99 Room Air 10/10/16 08:13 153/95 10/10/16 07:37 76 10/10/16 04:00 97.2 75 20 146/105 100 Room Air 10/10/16 04:00 68 10/10/16 00:00 97.2 71 20 150/91 100 Room Air 10/10/16 00:00 77 10/09/16 20:00 97.2 110 20 142/96 100 Room Air 10/09/16 20:00 83 10/09/16 16:00 73 153/98 10/09/16 15:47 66 10/09/16 15:46 98.0 71 20 166/103 100 Room Air Intake and Output 10/09/16 10/10/16 19:00 07:00 Intake Total 1130 ml Balance 1130 ml Intake Oral 1130 ml # Voids 4 3 General Appearance: cachetic HEENT: normocephalic, atraumatic Respiratory/Chest: chest wall non-tender, lungs clear Breasts: no masses Cardiovascular: normal peripheral pulses Abdomen: normal bowel sounds, soft, non tender Genitourinary: normal external genitalia Extremities: no clubbing Skin: no rash Neurologic/Psychiatric: development administrator II-XII grossly normal, no motor/sensory deficits Lymphatic: no neck adenopathy Laboratory Tests 10/10/16 07:40: White Blood Count 3.8L, Red Blood Count 4.13L, Hemoglobin 8.4L, Hematocrit 28.9L , Mean Corpuscular Volume 70L, Mean Corpuscular Hemoglobin 20.2L, Mean Corpuscular Hemoglobin Concent 28.9L, Red Cell Distribution Width 17.3H, Platelet Count 294, Mean Platelet Volume 8.6, Neutrophils (%) (Auto) 65.7, Lymphocytes (%) (Auto) 28.3, Monocytes (%) (Auto) 4.7, Eosinophils (%) (Auto) 1.1, Basophils (%) (Auto) 0.2, Sodium Level 137, Potassium Level 3.8, Chloride Level 99, Carbon Dioxide Level 27, Anion Gap 11, Blood Urea Nitrogen 21, Creatinine 1.1H, Estimat Glomerular Filtration Rate > 60, Glucose Level 147H, Calcium Level 8.1L, Magnesium Level 1.5L, Total Bilirubin < 0.2, Aspartate Amino Transf (AST/SGOT) 21, Alanine Aminotransferase (ALT/SGPT) 26, Alkaline Phosphatase 97, Troponin I < 0.30, Pro-B-Type Natriuretic Peptide 1304H, Total Protein 6.3L, Albumin 2.6L, Globulin 3.7, Albumin/Globulin Ratio 0.7L Current Medications Medications (Trade) Dose Ordered Sig/Gurmeet Route PRN Reason Start Time Stop Time Status Last Admin Dose Admin Acetaminophen (Tylenol) 650 mg Q4H PRN ORAL FEVER 10/08/16 20:30 11/07/16 20:29 Albuterol/ Ipratropium (DuoNeb 0.5-3(2.5)mg/3ml) 3 ml Q4H PRN HHN Shortness of Breath 10/08/16 20:30 10/13/16 20:29 Aspirin (ASA) 162 mg DAILY ORAL 10/09/16 09:00 11/08/16 08:59 10/10/16 08:14 Diltiazem HCl (Cardizem) 10 mg Q1H PRN IV HR > 120 10/08/16 20:30 11/07/16 20:29 Enalaprilat (Vasotec) 2.5 mg Q6H PRN IV sbp more than 160 10/08/16 20:30 11/07/16 20:29 Furosemide (Lasix) 40 mg EVERY 8 HOURS IV 10/10/16 14:00 11/09/16 13:59 UNV Heparin Sodium (Porcine) (Heparin 5000 units/ml) 5,000 units EVERY 12 HOURS SUBQ 10/08/16 21:00 11/07/16 20:59 10/10/16 08:16 Hydromorphone HCl (Dilaudid) 1 mg Q4H PRN IVP Severe Pain (Pain Scale 7-10) 10/09/16 12:30 10/16/16 12:29 10/10/16 12:30 Lisinopril (Prinivil) 20 mg DAILY ORAL 10/09/16 09:00 11/08/16 08:59 10/10/16 08:13 Nitroglycerin (Ntg) 0.4 mg Q5MIN X 3 DOSES PRN SL Prn Chest Pain 10/08/16 20:30 11/07/16 20:29 Ondansetron HCl (Zofran) 4 mg Q6H PRN IVP Nausea & Vomiting 10/08/16 20:30 11/07/16 20:29 10/09/16 22:12 Pantoprazole (Protonix) 40 mg DAILY ORAL 10/09/16 09:00 11/08/16 08:59 10/10/16 08:14 Polyethylene Glycol (Miralax) 17 gm DAILYPRN PRN ORAL Constipation 10/08/16 20:30 11/07/16 20:29 Pravastatin Sodium (Pravachol) 20 mg BEDTIME ORAL 10/08/16 21:00 11/07/16 20:59 10/09/16 20:29 Prednisone (predniSONE) 20 mg DAILY ORAL 10/09/16 09:00 11/08/16 08:59 10/10/16 08:13 Temazepam (Restoril) 15 mg HSPRN PRN ORAL Insomnia 10/08/16 20:30 10/15/16 20:29 Tramadol HCl (Ultram) 50 mg Q6H PRN ORAL Moderate Pain (Pain Scale 4-6) 10/09/16 12:12 10/15/16 20:29 TENA HUTCHISON October 10, 2016 13:13
[2016-10-10 15:52] VITALS: BP 136/84
--- NOTE | 2016-10-10 20:18 | Cardiology Progress Note ---
Assessment/Plan Assessment/Plan chf acute systolic dizziness described as imbalance hs of mild cm hx of pulm htn systemic htn anemia sle cociane abuse hs non compliance avoid bb acei fr bp control increase dose repeat echo noted increase acei fluid and na restriction diuresis iv to be contineue for anther 24 hours venous duplex neg avoidance of cocaine recommended tele reviewed neg Subjective Cardiovascular: Denies: chest pain, lightheadedness Respiratory: Reports: shortness of breath Gastrointestinal/Abdominal: Denies: abdominal pain Genitourinary: Denies: burning Objective Last 24 Hour Vital Signs Date Time Temp Pulse Resp B/P Pulse Ox O2 Delivery O2 Flow Rate FiO2 10/10/16 19:35 70 18 Room Air 10/10/16 17:12 97.2 10/10/16 16:00 68 10/10/16 15:52 97.2 76 18 136/84 99 Room Air 10/10/16 11:45 97.2 85 18 148/92 100 Room Air 10/10/16 11:36 76 10/10/16 08:19 97.5 70 18 153/95 99 Room Air 10/10/16 08:13 153/95 10/10/16 07:37 76 10/10/16 04:00 97.2 75 20 146/105 100 Room Air 10/10/16 04:00 68 10/10/16 00:00 97.2 71 20 150/91 100 Room Air 10/10/16 00:00 77 General Appearance: no apparent distress, alert Neck: no JVD Cardiovascular: normal rate, regular rhythm Respiratory/Chest: lungs clear, normal breath sounds Abdomen: normal bowel sounds, non tender, soft Extremities: no swelling Intake and Output 10/09/16 10/10/16 18:59 06:59 Intake Total 1130 ml Balance 1130 ml Intake Oral 1130 ml # Voids 4 3 Laboratory Tests Test 10/10/16 07:40 White Blood Count 3.8 K/UL (4.8-10.8) L Red Blood Count 4.13 M/UL (4.20-5.40) L Hemoglobin 8.4 G/DL (12.0-16.0) L Hematocrit 28.9 % (37.0-47.0) L Mean Corpuscular Volume 70 FL (80-99) L Mean Corpuscular Hemoglobin 20.2 PG (27.0-31.0) L Mean Corpuscular Hemoglobin Concent 28.9 G/DL (32.0-36.0) L Red Cell Distribution Width 17.3 % (11.6-14.8) H Platelet Count 294 K/UL (150-450) Mean Platelet Volume 8.6 FL (6.5-10.1) Neutrophils (%) (Auto) 65.7 % (45.0-75.0) Lymphocytes (%) (Auto) 28.3 % (20.0-45.0) Monocytes (%) (Auto) 4.7 % (1.0-10.0) Eosinophils (%) (Auto) 1.1 % (0.0-3.0) Basophils (%) (Auto) 0.2 % (0.0-2.0) Sodium Level 137 mEQ/L (135-145) Potassium Level 3.8 mEQ/L (3.4-4.9) Chloride Level 99 mEQ/L (98-107) Carbon Dioxide Level 27 mEQ/L (20-30) Anion Gap 11 (5-15) Blood Urea Nitrogen 21 mg/dL (7-23) Creatinine 1.1 mg/dL (0.5-0.9) H Estimat Glomerular Filtration Rate > 60 mL/min (>60) Glucose Level 147 mg/dL (74-106) H Calcium Level 8.1 mg/dL (8.6-10.2) L Magnesium Level 1.5 mg/dL (1.7-2.5) L Total Bilirubin < 0.2 mg/dL (0.0-1.2) Aspartate Amino Transf (AST/SGOT) 21 U/L (5-40) Alanine Aminotransferase (ALT/SGPT) 26 U/L (3-33) Alkaline Phosphatase 97 U/L (35-104) Troponin I < 0.30 ng/mL (<=0.30) Pro-B-Type Natriuretic Peptide 1304 pg/mL (0-125) H Total Protein 6.3 g/dL (6.6-8.7) L Albumin 2.6 g/dL (3.5-5.2) L Globulin 3.7 g/dL Albumin/Globulin Ratio 0.7 (1.0-2.7) L DAYNA JAUREGUI October 10, 2016 20:18
[2016-10-10 20:19] VITALS: BP 140/90
[2016-10-10] MEDS ORDERED: Lisinopril 10mg tab ORAL ONE (20:45)
[2016-10-11 00:05] VITALS: BP 139/95
[2016-10-11] MEDS: HYDROmorphone 1mg/ml Carpuject IVP PRN ×3 (00:48→09:21)
[2016-10-11 04:00] VITALS: BP 148/94
[2016-10-11 08:00] VITALS: BP 132/92
--- NOTE | 2016-10-11 08:34 | Diagnostic Imaging Report ---
Indications: Shortness of breath Technique: Portable AP chest Findings: Comparison: 10/10/16 Cardiac silhouette remains enlarged. Pulmonary vasculature remains within normal limits. Small linear densities compatible with subsegmental atelectasis versus scarring persist in the medial aspect of the right lung base. Lungs and pleura remain otherwise clear. Metallic density again noted overlying right neck base soft tissues. IMPRESSION: No evidence of acute disease, unchanged Stable chronic changes as described
[2016-10-11 08:39] LABS: BASOPHILS % (AUTO) 0.3 % (0.0-2.0); EOSINOPHILS % (AUTO) 1.5 % (0.0-3.0); MEAN CORPUSCULAR HGB CONC 28.4 G/DL (32.0-36.0); MEAN CORPUSCULAR VOLUME 70 FL (80-99); MEAN PLATELET VOLUME 8.1 FL (6.5-10.1); MONOCYTES % (AUTO) 8.1 % (1.0-10.0); NEUTROPHILS % (AUTO) 62.1 % (45.0-75.0); PLATELET COUNT 331 K/UL (150-450); RED BLOOD COUNT 4.66 M/UL (4.20-5.40); RED CELL DISTRIBUTION WIDTH 17.4 % (11.6-14.8); WHITE BLOOD COUNT 4.4 K/UL (4.8-10.8)
[2016-10-11 08:56] LABS: ALANINE AMINOTRANSFERASE 27 U/L (3-33); ALBUMIN/GLOBULIN RATIO 0.6 (1.0-2.7); ANION GAP 13 (5-15); ASPARTATE AMINO TRANSFERASE 25 U/L (5-40); CALCIUM 8.7 mg/dL (8.6-10.2); CARBON DIOXIDE 31 mEQ/L (20-30); CHLORIDE 94 mEQ/L (98-107); CREATININE 1.1 mg/dL (0.5-0.9); GLOMERULAR FILTRATION RATE > 60 mL/min (>60); HEMOLYSIS 0; MAGNESIUM 1.5 mg/dL (1.7-2.5); POTASSIUM 3.9 mEQ/L (3.4-4.9); SODIUM 138 mEQ/L (135-145); TOTAL PROTEIN 7.2 g/dL (6.6-8.7)
[2016-10-11] MEDS ORDERED: Lisinopril 10mg tab ORAL SCH (09:00)
[2016-10-11] MEDS: PredniSONE 20mg tab ORAL SCH (09:22)
[2016-10-11] MEDS: Aspirin Baby 81mg ORAL SCH (09:22)
[2016-10-11] MEDS: Heparin 5000 units/ml inj SUBQ SCH (09:24)
--- NOTE | 2016-10-11 11:37 | Diagnostic Imaging Report ---
APPROVED REPORT CPT Code: 20917 Present Symptoms Comments: Chest pain BILATERAL: Imaging reveals a patent deep venous system bilaterally. There is no evidence of thrombus within the femoral, popliteal or tibial segments. The greater saphenous veins are also within normal limits. Doppler indicates normal spontaneous flow within these segments. Incidental findings: Cystic, fluid filled structure noted around the anterior knee area BLE.
[2016-10-11] MEDS ORDERED: NS 275ml ONE (11:49)
[2016-10-11] MEDS ORDERED: Tubing IV Secondary IV ONE (11:49)
[2016-10-11 11:57] VITALS: BP 128/85
--- NOTE | 2016-10-11 12:05 | Pulmonology Progress Note ---
Assessment/Plan Problems: (1) CHF (congestive heart failure) (2) ACS (acute coronary syndrome) (3) Cardiomyopathy (4) COPD (chronic obstructive pulmonary disease) (5) Knee effusion, right (6) Pulmonary hypertension (7) Polysubstance abuse Assessment/Plan cxr from today is normal echo noted, EF of 50% cardio evaluation appreciated dc home tody with f/u with primary Subjective ROS Limited/Unobtainable: No Interval Events: no sob Allergies: Coded Allergies: No Known Allergies (Unverified , 10/08/16) Objective Last 24 Hour Vital Signs Date Time Temp Pulse Resp B/P Pulse Ox O2 Delivery O2 Flow Rate FiO2 10/11/16 11:57 97.1 75 20 128/85 100 Room Air 10/11/16 09:23 132/92 10/11/16 08:00 97.5 72 20 132/92 100 Room Air 10/11/16 05:20 97.6 10/11/16 04:00 80 10/11/16 04:00 97.7 75 20 148/94 97 Room Air 10/11/16 00:05 97.6 90 18 139/95 97 Room Air 10/11/16 00:00 91 10/10/16 21:55 140/90 10/10/16 20:19 97.7 74 19 140/90 99 Room Air 10/10/16 20:00 80 10/10/16 19:35 70 18 Room Air 10/10/16 16:00 68 10/10/16 15:52 97.2 76 18 136/84 99 Room Air Intake and Output 10/10/16 10/11/16 19:00 07:00 Intake Total 800 ml 800 ml Balance 800 ml 800 ml Intake Oral 600 ml 800 ml IV Total 200 ml # Voids 3 5 General Appearance: WD/WN, no acute distress HEENT: normocephalic, atraumatic Respiratory/Chest: chest wall non-tender, lungs clear Cardiovascular: normal peripheral pulses, normal rate Abdomen: normal bowel sounds, soft, non tender Genitourinary: normal external genitalia Extremities: no cyanosis Neurologic/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 Complete 10/09/16 05:00 Rectum VRE Culture - Final NO VANCOMYCIN RESISTANT ENTEROCOCCUS ... Complete Laboratory Tests 10/11/16 08:05: White Blood Count 4.4L, Red Blood Count 4.66, Hemoglobin 9.3L, Hematocrit 32.8L , Mean Corpuscular Volume 70L, Mean Corpuscular Hemoglobin 20.0L, Mean Corpuscular Hemoglobin Concent 28.4L, Red Cell Distribution Width 17.4H, Platelet Count 331, Mean Platelet Volume 8.1, Neutrophils (%) (Auto) 62.1, Lymphocytes (%) (Auto) 28.0, Monocytes (%) (Auto) 8.1, Eosinophils (%) (Auto) 1.5, Basophils (%) (Auto) 0.3, Sodium Level 138, Potassium Level 3.9, Chloride Level 94L, Carbon Dioxide Level 31H, Anion Gap 13, Blood Urea Nitrogen 23, Creatinine 1.1H, Estimat Glomerular Filtration Rate > 60, Glucose Level 96, Calcium Level 8.7, Magnesium Level 1.5L, Total Bilirubin 0.2, Aspartate Amino Transf (AST/SGOT) 25, Alanine Aminotransferase (ALT/SGPT) 27, Alkaline Phosphatase 126H, Pro-B-Type Natriuretic Peptide 958H, Total Protein 7.2, Albumin 2.9L, Globulin 4.3, Albumin/Globulin Ratio 0.6L Current Medications Medications (Trade) Dose Ordered Sig/[place] Route PRN Reason Start Time Stop Time Status Last Admin Dose Admin Acetaminophen (Tylenol) 650 mg Q4H PRN ORAL FEVER 10/08/16 20:30 11/07/16 20:29 Albuterol/ Ipratropium (DuoNeb 0.5-3(2.5)mg/3ml) 3 ml Q4H PRN HHN Shortness of Breath 10/08/16 20:30 10/13/16 20:29 Aspirin (ASA) 162 mg DAILY ORAL 10/09/16 09:00 11/08/16 08:59 10/11/16 09:22 Diltiazem HCl (Cardizem) 10 mg Q1H PRN IV HR > 120 10/08/16 20:30 11/07/16 20:29 Enalaprilat (Vasotec) 2.5 mg Q6H PRN IV sbp more than 160 10/08/16 20:30 11/07/16 20:29 Furosemide (Lasix) 40 mg Q8HR IV 10/10/16 15:00 11/09/16 14:59 10/11/16 05:46 Heparin Sodium (Porcine) (Heparin 5000 units/ml) 5,000 units EVERY 12 HOURS SUBQ 10/08/16 21:00 11/07/16 20:59 10/11/16 09:24 Hydromorphone HCl (Dilaudid) 1 mg Q4H PRN IVP Severe Pain (Pain Scale 7-10) 10/09/16 12:30 10/16/16 12:29 10/11/16 09:21 Lisinopril (Zestril) 30 mg DAILY ORAL 10/11/16 09:00 11/10/16 08:59 10/11/16 09:23 Nitroglycerin (Ntg) 0.4 mg Q5MIN X 3 DOSES PRN SL Prn Chest Pain 10/08/16 20:30 11/07/16 20:29 Ondansetron HCl (Zofran) 4 mg Q6H PRN IVP Nausea & Vomiting 10/08/16 20:30 11/07/16 20:29 10/09/16 22:12 Pantoprazole (Protonix) 40 mg DAILY ORAL 10/09/16 09:00 11/08/16 08:59 10/11/16 09:25 Polyethylene Glycol (Miralax) 17 gm DAILYPRN PRN ORAL Constipation 10/08/16 20:30 11/07/16 20:29 Pravastatin Sodium (Pravachol) 20 mg BEDTIME ORAL 10/08/16 21:00 11/07/16 20:59 10/10/16 20:48 Prednisone (predniSONE) 20 mg DAILY ORAL 10/09/16 09:00 11/08/16 08:59 10/11/16 09:22 Temazepam (Restoril) 15 mg HSPRN PRN ORAL Insomnia 10/08/16 20:30 10/15/16 20:29 10/10/16 20:49 Tramadol HCl (Ultram) 50 mg Q6H PRN ORAL Moderate Pain (Pain Scale 4-6) 10/09/16 12:12 10/15/16 20:29 TENA HUTCHISON October 11, 2016 12:05
--- NOTE | 2016-10-11 16:36 | Diagnostic Imaging Report ---
Indication: Dyspnea Comparison: 10/08/16 A single view chest radiograph was obtained. Findings: Mild pulmonary vascularity congestion demonstrated, improved from the previous exam. Heart remains enlarged. No pleural effusions are seen. Impression: mild interstitial edema improved overall since the last study
--- NOTE | 2016-10-12 16:14 | Discharge Summary ---
Discharge Summary Hospital Course Date of Admission October 08, 2016 at 17:04 Date of Discharge October 11, 2016 at 11:50 Admitting Diagnosis CHF MELANY Ho is a 41 year old female who was admitted on October 08, 2016 at 17:04 for Congestive Heart Failure Hospital Course [id number] Discharge Discharge Disposition Patient was discharged to Home (01) Discharge Diagnoses: Carolann Rizo NP October 12, 2016 16:14
--- NOTE | 2016-10-13 07:01 | Discharge Summary 2 SIG ---
DATE OF ADMISSION: 10/08/2016 DATE OF DISCHARGE: 10/11/2016 AUTO REFINISHER: Oswaldo Quesada M.D. BRIEF HOSPITAL COURSE: The patient is a 41-year-old female with history of CHF, COPD, lupus and drug abuse, presented to the ER complaining of chest pain that has a gradual onset for the past three hours. The patient had a prior history of anemia secondary to lupus and reported being noncompliant with her medications. On evaluation at ED, chest x-ray showed cardiac enlargement with no evident mediastinal widening. She was given IV Lasix as well as nitroglycerin. Urine drug screen was positive for cocaine as well as PCP. She was given aspirin. Blood pressure was elevated to 180/103. She was admitted for uncontrolled hypertension and for evaluation of chest pain. Chest x-ray showed lateral T-wave inversion. Dr. Quesada was consulted. EKG was reviewed. There was T-wave inversions in leads 1, aVL, V5, and V6 compared to previous EKG. There was no significant T-wave abnormalities. She was given KAREN inhibitors and beta blockers. She was recommended to be on KAREN inhibitors with cautious use of beta blockers in lieu of cocaine use. She was continued on lisinopril, aspirin and was given pain management. Venous duplex of lower extremity was negative for DVT. An echocardiogram done showed ejection fraction of 50% with left ventricular enlargement and moderate pulmonary hypertension. She was given fluid and sodium restrictions and continued with diuresis. She was advised on avoidance of cocaine. Repeat chest x-ray done showed no evidence of acute disease. Her troponins have been negative. She was eventually discharged home. Advised to follow up with primary. FINAL DIAGNOSES: 1. Acute systolic congestive heart failure. 2. Mild cardiomyopathy. 3. Pulmonary hypertension. 4. Systemic hypertension. 5. Anemia. 6. Systemic lupus erythematosus. 7. Cocaine abuse. 8. Noncompliance with medications. 9. Chronic obstructive pulmonary disease. 10. Right knee effusion. Suzanne Ricardo M.D. I have been assigned to dictate discharge summary on this account and I was not involved in the patient's management. Carolann Rizo N.P. DR: ROMÁN JOB#: [id number] CC:
== END 2016-10-11 11:50 | disposition home or self-care (01) | DRG 194 ==
LOC: EMR 16:15 → 2E 17:04 → EDBEDREQ 18:10
DX: I50.21 Acute systolic (congestive) heart failure (principal); I42.9 Cardiomyopathy, unspecified; I27.2 Other secondary pulmonary hypertension; I24.9 Acute ischemic heart disease, unspecified; J44.9 Chronic obstructive pulmonary disease, unspecified; F19.10 Other psychoactive substance abuse, uncomplicated; Z76.5 Malingerer [conscious simulation]; D64.9 Anemia, unspecified; M25.461 Effusion, right knee; I10 Essential (primary) hypertension; Z91.14 Patient's other noncompliance with medication regimen; M13.80 Other specified arthritis, unspecified site; F14.10 Cocaine abuse, uncomplicated; L93.0 Discoid lupus erythematosus; Z72.0 Tobacco use; F10.20 Alcohol dependence, uncomplicated
CPT/HCPCS: 36415; 71010; 80053; 80061; 80300; 81025; 82550; 82553; 83735; 83880; 84443; 84484; 85025; 85610; 85730; 86140; 87081; 93005; 93306; 93970; 94664; J2405

== ENCOUNTER 2016-10-20 14:08 | Emergency (ER) | payer OTHER ==
[~2016-10-20] VITALS: Ht 165.1 cm; Wt 59.0 kg
[2016-10-20] MEDS ORDERED: BENADRYL25 MG ORAL (14:41)
[2016-10-20] MEDS ORDERED: KEFLEX500 MG ORAL (14:41)
[2016-10-20 14:45] VITALS: BP 134/92
[2016-10-20 14:47] VITALS: BP 134/92
--- NOTE | 2016-10-20 14:56 | Emergency Room Report ---
History of Present Illness General Chief Complaint: Skin Rash/Abscess Source: Patient, Medical Record Present Illness HPI 41YOF here for "bumps on lower back" associated with itch. Denies fever/chills. Denies history of DM, previous abscess. Of note, patient is actually in ED accompanying friend who is a patient. Wanted to "get checked just because I was here." Patient eating cheeseburger/ fries in [employer] chairs. Allergies: Coded Allergies: No Known Allergies (Unverified , 10/08/16) Patient History Past Medical History: other - SLE Past Surgical History: none Pertinent Family History: none Social History: Denies: alcohol use, drug use, smoking Now: No Immunizations: UTD Reviewed Nursing Documentation: PMH: Agreed, PSxH: Agreed Nursing Documentation-PMH Hx Cardiac Problems: Yes Hx Hypertension: Yes Hx Pacemaker: No Hx Asthma: No Hx COPD: Yes Hx Diabetes: No Hx Cancer: No Hx Gastrointestinal Problems: No Hx Dialysis: No Hx Neurological Problems: No Hx Cerebrovascular Accident: No Hx Seizures: No Review of Systems All Other Systems: negative except mentioned in HPI Physical Exam Vital Signs Date Time Temp Pulse Resp B/P Pulse Ox O2 Delivery O2 Flow Rate FiO2 10/20/16 14:27 98.1 96 16 134/92 99 Room Air Sp02 EP Interpretation: reviewed, normal General Appearance: normal inspection, well appearing, no apparent distress, alert, non-toxic Head: normocephalic, atraumatic Eyes: bilateral eye EOMI, bilateral eye PERRL ENT: normal ENT inspection, hearing grossly normal, normal voice Neck: normal inspection, full range of motion, supple, no bony tend Respiratory: normal inspection, lungs clear, normal breath sounds, no respiratory distress, no retraction, no wheezing Cardiovascular #1: regular rate, rhythm, no edema Gastrointestinal: normal inspection, normal bowel sounds, non tender, soft, no guarding, no hernia Genitourinary: no CVA tenderness Musculoskeletal: normal inspection, back normal, normal range of motion, Nazia' s Sign negative Neurologic: normal inspection, alert, oriented x3, responsive, 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 No jun abscess. Some erythema. Medical Decision Making Diagnostic Impression: Primary Impression: Rash and other nonspecific skin eruption ER Course Rash to lower back ?cellulitis, folliculitis No abscess VSS. Afebrile No systemic signs and symptoms Rx Keflex, warm compress PMD followup Last Vital Signs Date Time Temp Pulse Resp B/P Pulse Ox O2 Delivery O2 Flow Rate FiO2 10/20/16 14:27 98.1 96 16 134/92 99 Room Air Status: improved Disposition: HOME, SELF-CARE Condition: Improved Scripts Diphenhydramine Hcl* (BENADRYL*) 25 Mg Capsule 25 MG ORAL BID Y for Itching for 7 Days, #14 CAP Prov: BENTIA SHARMA M.D. 10/20/16 Cephalexin* (KEFLEX*) 500 Mg Capsule 500 MG ORAL Q6H for 7 Days, #28 CAP 0 Refills Prov: BENITA SHARMA M.D. 10/20/16 Referrals: CIARA MAGANA,REFERRING (PCP) Patient Instructions: Rash Additional Instructions: - Take all antibiotics to treat cellulitis infection of back - Take benadryl as needed for itch but DO NOT DRIVE after taking benadryl BENITA SHARMA M.D. Oct 20, 2016 14:56
== END 2016-10-20 14:47 | disposition home or self-care (01) ==
LOC: EMR 14:33
DX: R21 Rash and other nonspecific skin eruption (principal); I10 Essential (primary) hypertension
CPT/HCPCS: 99284

== ENCOUNTER 2016-11-11 06:23 | Emergency (ER) | payer OTHER ==
[~2016-11-11] VITALS: Ht 165.1 cm; Wt 56.7 kg
[~2016-11-11 06:23] MED LIST changes: +BENADRYL25 MG ORAL; +KEFLEX500 MG ORAL
[2016-11-11 07:04] VITALS: BP 179/105
[2016-11-11] MEDS ORDERED: AZITHROMYCIN250 MG ORAL (07:45)
[2016-11-11] MEDS ORDERED: VENTOLIN HFA18 GM INH (07:45)
--- NOTE | 2016-11-11 07:58 | Emergency Room Report ---
History of Present Illness General Chief Complaint: Dyspnea/Respdistress Source: Patient, Medical Record Present Illness HPI 41YOF walk-in with SOB for 1 week, associated with subjective fever/chills and dry cough. + smoker. Denies asthma, COPD history. History of SLE, CHF. Allergies: Coded Allergies: No Known Allergies (Unverified , 10/08/16) Patient History Past Medical History: HTN, CHF, other - Lupus Past Surgical History: none Pertinent Family History: none Social History: Reports: smoking Last Menstrual Period: 11/09/16 Now: No : 1 Para: 1 Immunizations: UTD Reviewed Nursing Documentation: PMH: Agreed, PSxH: Agreed Nursing Documentation-PMH Past Medical History: No History, Except For Hx Cardiac Problems: Yes Hx Hypertension: Yes Hx Pacemaker: No Hx Asthma: No Hx COPD: Yes Hx Diabetes: No Hx Cancer: No Hx Gastrointestinal Problems: No Hx Dialysis: No Hx Neurological Problems: No Hx Cerebrovascular Accident: No Hx Seizures: No Review of Systems All Other Systems: negative except mentioned in HPI Physical Exam Vital Signs Date Time Temp Pulse Resp B/P Pulse Ox O2 Delivery O2 Flow Rate FiO2 11/11/16 07:04 97.9 89 16 179/105 98 Room Air Sp02 EP Interpretation: reviewed, abnormal General Appearance: normal inspection, well appearing, no apparent distress, alert, GCS 15, non-toxic Head: normocephalic, atraumatic Eyes: bilateral eye EOMI, bilateral eye PERRL ENT: normal ENT inspection, hearing grossly normal, normal voice Neck: normal inspection, full range of motion, supple, no bony tend Respiratory: normal inspection, lungs clear, normal breath sounds, no rhonchi, no respiratory distress, no retraction, no accessory muscle use, no wheezing, speaking full sentences Cardiovascular #1: regular rate, rhythm, no edema Gastrointestinal: normal inspection, normal bowel sounds, non tender, soft, no guarding, no hernia Genitourinary: no CVA tenderness Musculoskeletal: normal inspection, back normal, normal range of motion, Nazia' s Sign negative Neurologic: normal inspection, alert, oriented x3, responsive, yeast supervisor III-XII nml as tested, motor strength/tone normal, speech normal Psychiatric: normal inspection, judgement/insight normal, mood/affect normal Skin: normal inspection, normal color, no rash Medical Decision Making Diagnostic Impression: Primary Impression: Dyspnea Qualified Codes: R06.00 - Dyspnea, unspecified Additional Impression: Atypical pneumonia ER Course Cough, SOB for 1 week - VSS. Afebrile. - Not hypoxic. Not tachypnic. - Not in acute CHF - Very well appearing - Given subjective fever/chills, history of SLE, will tx for atypicals and cover with Z-pack Close PMD followup in 2-3 days Last Vital Signs Date Time Temp Pulse Resp B/P Pulse Ox O2 Delivery O2 Flow Rate FiO2 11/11/16 07:04 89 16 Room Air 11/11/16 07:04 97.9 179/105 98 Status: improved Disposition: HOME, SELF-CARE Condition: Improved Scripts Azithromycin* (ZITHROMAX*) 250 Mg Tablet 250 MG ORAL DAILY for 5 Days, #6 TAB 0 Refills Take two tablets by mouth today, then take one tablet by mouth daily for four days Prov: BENITA SHARMA M.D. 11/11/16 Albuterol Sulfate (VENTOLIN HFA) 18 Gm Hfa.aer.ad 1 PUFF INH EVERY 6 HOURS for For Cough for 7 Days, #18 GM 0 Refills Prov: BENITA SHARMA M.D. 11/11/16 Referrals: NON PHYSICIAN (PCP) Patient Instructions: Shortness of Breath Additional Instructions: - Take ALL the antibiotic-Zpack until finished - Use Ventolin pump during the day for cough BENITA SHARMA M.D. Nov 11, 2016 07:58
[2016-11-11 08:03] VITALS: BP 158/89
== END 2016-11-11 08:08 | disposition home or self-care (01) ==
LOC: EMR 07:08
DX: J18.9 Pneumonia, unspecified organism (principal); I10 Essential (primary) hypertension
CPT/HCPCS: 99284

== ENCOUNTER 2016-12-13 21:56 | Emergency (ER) | payer OTHER ==
[~2016-12-13] VITALS: Ht 165.1 cm; Wt 63.5 kg
[~2016-12-13 21:56] MED LIST changes: +AZITHROMYCIN250 MG ORAL; +VENTOLIN HFA18 GM INH
[2016-12-13 22:00] VITALS: BP 198/120
[2016-12-14] MEDS ORDERED: LORazepam 1mg tab ORAL ONE
[2016-12-14 00:05] VITALS: BP 197/123
[2016-12-14 02:15] VITALS: BP 195/147
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
[2016-12-14] MEDS ORDERED: Lisinopril 10mg tab ORAL ONE (03:00)
[2016-12-14 03:03] VITALS: BP 190/123
[2016-12-14 03:12] LABS: APPEARANCE,URINE CLEAR; KETONES,URINE NEGATIVE (NEGATIVE); LEUKOCYTE ESTERASE ,URINE NEGATIVE (NEGATIVE); NITRITE,URINE POSITIVE (NEGATIVE); PH,URINE 6 (4.5-8.0); PROTEIN,URINE 4+ (NEGATIVE); UROBILINOGEN,URINE NORMAL MG/DL (0.0-1.0)
[2016-12-14 03:29] LABS: BACTERIA,URINE FEW /HPF
[2016-12-14 03:35] LABS: SQUAMOUS EPITHELIAL CELL,UR MODERATE /LPF (NONE/OCC)
[2016-12-14] MEDS ORDERED: LISINOPRIL10 MG ORAL (03:47)
[2016-12-14] MEDS ORDERED: NITROFURANTOIN100 M2 ORAL (03:47)
[2016-12-14 03:54] VITALS: BP 183/102
== END 2016-12-14 04:13 | disposition home or self-care (01) ==
LOC: EDBD 21:56 → EMR 22:06
DX: I10 Essential (primary) hypertension (principal); F41.9 Anxiety disorder, unspecified; F14.10 Cocaine abuse, uncomplicated; I50.9 Heart failure, unspecified; Z91.14 Patient's other noncompliance with medication regimen; M32.9 Systemic lupus erythematosus, unspecified; J44.9 Chronic obstructive pulmonary disease, unspecified
CPT/HCPCS: 80300; 81003; 99284

== ENCOUNTER 2017-01-13 05:56 | Inpatient (IN) | payer OTHER ==
[2017-01-13] VITALS (9 sets, daily range): BP systolic 137–165; BP diastolic 85–118
[~2017-01-13] VITALS: Ht 165.1 cm; Wt 59.9 kg
[~2017-01-13 05:56] MED LIST changes: +NITROFURANTOIN100 M2 ORAL
--- NOTE | 2017-01-13 06:08 | Emergency Room Report ---
History of Present Illness General Chief Complaint: Abdominal Pain Source: Patient, EMS (Jaime Paul) Present Illness HPI Patient's 41-year-old female presented after increased abdominal pain. Patient prior history of cardiomyopathy as well as cocaine abuse. Patient had reported history of lupus. She reported having increased abdominal pain. She reported having some episodes of vomiting. She reported having increased difficulty breathing. Patient stated this was worse with supine position. Patient denied taking any water pills. She states he does not have a primary care physician. (Jaime Paul) Allergies: Coded Allergies: No Known Allergies (Unverified , 10/08/16) Patient History Past Medical History: see triage record Last Menstrual Period: Last month Now: No Reviewed Nursing Documentation: PMH: Agreed, PSxH: Agreed (Jaime Paul) Nursing Documentation-PMH Past Medical History: No History, Except For Hx Cardiac Problems: Yes - lupus Hx Hypertension: Yes Hx Pacemaker: No Hx Asthma: No Hx COPD: Yes Hx Diabetes: No Hx Cancer: No Hx Gastrointestinal Problems: No Hx Dialysis: No Hx Neurological Problems: No Hx Cerebrovascular Accident: No Hx Seizures: No (Jaime Paul) Review of Systems All Other Systems: negative except mentioned in HPI (Jaime Palu) Physical Exam Vital Signs Date Time Temp Pulse Resp B/P (MAP) Pulse Ox O2 Delivery O2 Flow Rate FiO2 01/13/17 05:51 97.7 89 17 157/110 98 Room Air Sp02 EP Interpretation: reviewed, normal General Appearance: normal inspection, well appearing, no apparent distress, alert, GCS 15 Head: atraumatic ENT: normal ENT inspection, hearing grossly normal, normal voice Neck: normal inspection, full range of motion, supple, no bony tend Respiratory: normal inspection, lungs clear, normal breath sounds, no respiratory distress, no retraction, no wheezing Cardiovascular #1: regular rate, rhythm, no edema Gastrointestinal: normal inspection, normal bowel sounds, non tender, soft, no guarding, no hernia Genitourinary: no CVA tenderness Musculoskeletal: normal inspection, back normal, normal range of motion Neurologic: normal inspection, alert, oriented x3, responsive, gas main fitter III-XII nml as tested, speech normal Psychiatric: normal inspection, judgement/insight normal, mood/affect normal Skin: normal inspection, normal color, no rash (Jaime Paul) Medical Decision Making Diagnostic Impression: Primary Impression: CHF (congestive heart failure) Additional Impression: Polysubstance abuse ER Course Patient presented for abdominal pain. Differential diagnoses included ischemic bowel, appendicitis, perforated viscus, abdominal aortic aneurysm, inferior myocardial infarction, viral gastroenteritis Because of complexity of patient's case laboratory testing and imaging studies were ordered.The patient was endorsed to Dr. Granda pending laboratory testing. EKG interpreted by me shows sinus rhythm with a rate of 76 w prolonged QT interval and lateral T-wave flattening. Labs Test 01/13/17 06:15 White Blood Count 3.6 K/UL (4.8-10.8) Red Blood Count 4.47 M/UL (4.20-5.40) Hemoglobin 9.7 G/DL (12.0-16.0) Hematocrit 33.2 % (37.0-47.0) Mean Corpuscular Volume 74 FL (80-99) Mean Corpuscular Hemoglobin 21.6 PG (27.0-31.0) Mean Corpuscular Hemoglobin Concent 29.1 G/DL (32.0-36.0) Red Cell Distribution Width 21.8 % (11.6-14.8) Platelet Count 212 K/UL (150-450) Mean Platelet Volume 8.5 FL (6.5-10.1) Neutrophils (%) (Auto) 57.4 % (45.0-75.0) Lymphocytes (%) (Auto) 33.1 % (20.0-45.0) Monocytes (%) (Auto) 6.7 % (1.0-10.0) Eosinophils (%) (Auto) 2.4 % (0.0-3.0) Basophils (%) (Auto) 0.4 % (0.0-2.0) Sodium Level 137 mEQ/L (135-145) Potassium Level 4.3 mEQ/L (3.4-4.9) Chloride Level 99 mEQ/L (98-107) Carbon Dioxide Level 27 mEQ/L (20-30) Anion Gap 11 (5-15) Blood Urea Nitrogen 24 mg/dL (7-23) Creatinine 1.0 mg/dL (0.5-0.9) Estimat Glomerular Filtration Rate > 60 mL/min (>60) Glucose Level 91 mg/dL (74-106) Calcium Level 8.6 mg/dL (8.6-10.2) Total Bilirubin 0.4 mg/dL (0.0-1.2) Aspartate Amino Transf (AST/SGOT) 91 U/L (5-40) Alanine Aminotransferase (ALT/SGPT) 51 U/L (3-33) Alkaline Phosphatase 161 U/L (35-104) Total Protein 7.5 g/dL (6.6-8.7) Albumin 3.2 g/dL (3.5-5.2) Globulin 4.3 g/dL Albumin/Globulin Ratio 0.7 (1.0-2.7) Lipase 12 U/L (< 60) (Jaime Paul) ER Course 41-year-old female with history of lupus, cocaine use, congestive heart failure , presenting with shortness of breath and epigastric pain. Currently patient has vitals are within normal limits with the exception of high blood pressure of 145/109. Patient currently denying any chest pain. She is tender to the epigastric region however nontender in the right lower quadrant and Bernard's sign is negative. Chest x-ray showing worsened pulmonary vascular congestion as compared to previous x-ray, the patient was given Lasix. RUQ sono performed - negative. Patient will require in patient admission for uncontrolled hypertension, CHF, and epigastric pain. (Idalia Granda M.D.) EKG Diagnostic Results Rate: normal Rhythm: NSR ST Segments: no acute changes (Jaime Paul) Rhythm Strip Diag. Results EP Interpretation: yes Rhythm: NSR, no ectopy (Jaime Paul) Chest X-Ray Diagnostic Results Chest X-Ray Diagnostic Results : Chest X-Ray Ordered: Yes # of Views/Limited/Complete: 1 View Indication: Shortness of Breath EP Interpretation: Yes Interpretation: no effusion, no pneumothorax, no acute cardiopulmonary disease, other - cardiomegaly Impression: No acute disease Interpreting ER Provider: Electronically signed by Dr. Jaime Paul M.D. (Jaime Paul) CT/MRI/US Diagnostic Results CT/MRI/US Diagnostic Results : Imaging Test Ordered: US abdomen Impression Impression: Negative abdominal ultrasound. (Idalia Granda M.D.) Last Vital Signs Date Time Temp Pulse Resp B/P (MAP) Pulse Ox O2 Delivery O2 Flow Rate FiO2 01/13/17 05:51 97.7 89 17 157/110 98 Room Air Status: unchanged (Jaime Paul) Disposition: ADMITTED INPATIENT Condition: Serious Jaime Paul Jan 13, 2017 06:08 Idalia Granda M.D. Jan 13, 2017 08:04
[2017-01-13] MEDS ORDERED: LORazepam Inj 2mg/ml 1ml IV ONE (06:15)
[2017-01-13] MEDS ORDERED: Famotidine 20 MG/ 2ML VIAL IVP ONE (06:15)
[2017-01-13 07:04] LABS: BASOPHILS % (AUTO) 0.4 % (0.0-2.0); EOSINOPHILS % (AUTO) 2.4 % (0.0-3.0); LYMPHOCYTES % (AUTO) 33.1 % (20.0-45.0); MEAN CORPUSCULAR HEMOGLOBIN 21.6 PG (27.0-31.0); MEAN CORPUSCULAR HGB CONC 29.1 G/DL (32.0-36.0); MEAN CORPUSCULAR VOLUME 74 FL (80-99); MEAN PLATELET VOLUME 8.5 FL (6.5-10.1); MONOCYTES % (AUTO) 6.7 % (1.0-10.0); NEUTROPHILS % (AUTO) 57.4 % (45.0-75.0); PLATELET COUNT 212 K/UL (150-450); RED BLOOD COUNT 4.47 M/UL (4.20-5.40); RED CELL DISTRIBUTION WIDTH 21.8 % (11.6-14.8); WHITE BLOOD COUNT 3.6 K/UL (4.8-10.8)
[2017-01-13 07:18] LABS: ALANINE AMINOTRANSFERASE 51 U/L (3-33); ALBUMIN/GLOBULIN RATIO 0.7 (1.0-2.7); ANION GAP 11 (5-15); ASPARTATE AMINO TRANSFERASE 91 U/L (5-40); CALCIUM 8.6 mg/dL (8.6-10.2); CARBON DIOXIDE 27 mEQ/L (20-30); CHLORIDE 99 mEQ/L (98-107); GLOMERULAR FILTRATION RATE > 60 mL/min (>60); HEMOLYSIS 0; LIPASE 12 U/L (< 60); POTASSIUM 4.3 mEQ/L (3.4-4.9); SODIUM 137 mEQ/L (135-145); TOTAL PROTEIN 7.5 g/dL (6.6-8.7)
[2017-01-13 07:49] LABS: APPEARANCE,URINE CLEAR; KETONES,URINE NEGATIVE (NEGATIVE); LEUKOCYTE ESTERASE ,URINE NEGATIVE (NEGATIVE); NITRITE,URINE NEGATIVE (NEGATIVE); PH,URINE 7 (4.5-8.0); PROTEIN,URINE 1+ (NEGATIVE); UROBILINOGEN,URINE NORMAL MG/DL (0.0-1.0)
[2017-01-13 07:58] LABS: BACTERIA,URINE OCCASIONAL /HPF; RBC,URINE 0-2 /HPF (0 - 2); SQUAMOUS EPITHELIAL CELL,UR OCCASIONAL /LPF (NONE/OCC); WBC,URINE 0-2 /HPF (0 - 2)
--- NOTE | 2017-01-13 09:44 | Diagnostic Imaging Report ---
Indication: Dyspnea Comparison: 10/11/16 A single view chest radiograph was obtained. Findings: There is enlargement of the cardiac silhouette with pulmonary vascular redistribution and prominence, hazy vessel margins and the suggestion of interstitial edema consistent with CHF. There is a probable right pleural effusion Bones are osteopenic. Impression: Interstitial edema/CHF
--- NOTE | 2017-01-13 11:48 | Diagnostic Imaging Report ---
Indication:Abdominal pain Technique: Grayscale and duplex Doppler imaging of the abdomen performed. Comparison: None Findings: The liver, demonstrated part of the pancreas, gallbladder, aorta and IVC, both kidneys, spleen appear unremarkable. There is no biliary ductal dilatation identified. CBD is 3 mm in diameter. Doppler evaluation of the main portal vein shows patency. There is no ascites. No hydronephrosis seen. Impression: Negative abdominal ultrasound.
--- NOTE | 2017-01-13 11:53 | History and Physical ---
History of Present Illness General Date patient seen: Jan 12, 2017 Time patient seen: 10:15 Reason for Hospitalization: Abdominal Pain Present Illness HPI 41 y/old female with PMH of lupus, HTN, cardiomyopathy, cocaine abuse. presented with abdominal pain. reports nausea with vomiting, no blood in emesis no diarrhea, occasional bright red blood in stool Patient was hospitalized recently at [facility] Patient was told that she has liver problems Patient also reported SOB and panic attack when questioning what started first SOB or panic attack, stated simultaneously denied cough, wheezing, hemoptysis reported cigarette smoking and use of cocaine denied ETOH abuse patient was not on any diuretic patient denied chest pain, palpitations, dizziness workup in ED revealed : WBC-3.6, anemia : HH- 9.7/33.2 AST-91 ALT-51 BUN -21 creat-1.0 CXR with worsening pulmonary vascular congestion /CHF, possible R pleural effusion ECG with NSR no acute ischemic changes troponin negative VSS except elevated BP - 157/110 pulse oximetry stable on RA patient was admitted for further management Allergies: Coded Allergies: No Known Allergies (Unverified , 10/08/16) Medication History Scheduled Albuterol Sulfate (Ventolin Hfa), 1 PUFF INH EVERY 6 HOURS Aspirin* (Aspirin*), 81 MG ORAL DAILY, (Reported) Azithromycin* (Zithromax*), 250 MG ORAL DAILY Cephalexin* (Keflex*), 500 MG ORAL Q6H Docusate Sodium* (Docusate Sodium*), 20 MG ORAL DAILY, (Reported) Ferrous Sulfate (Feosol), 325 MG PO TID, (Reported) Hydroxychloroquine Sulfate* (Plaquenil*), 2 MG ORAL BID, (Reported) Lisinopril* (Lisinopril*), 20 MG ORAL DAILY, (Reported) Lisinopril* (Lisinopril*), 10 MG ORAL DAILY Nitrofurantoin Monohyd/M-Cryst* (Macrobid 100 Mg*), 100 MG ORAL EVERY 12 HOURS Pravastatin Sod* (Pravachol*), 20 MG ORAL BEDTIME, (Reported) Prednisone* (Prednisone*), 20 MG ORAL DAILY, (Reported) Sennosides (Senna-Gen), 1 TAB ORAL BID, (Reported) Scheduled PRN Diphenhydramine Hcl* (Benadryl*), 25 MG ORAL BID PRN for Itching Hydromorphone Hcl (Hydromorphone Hcl), 2 MG PO Q4HR PRN for For Pain, (Reported) Hydroxyzine HCl (Hydroxyzine Pamoate), 50 MG ORAL DAILY PRN for Itching, ( Reported) Tramadol Hcl* (Ultram*), 50 MG ORAL Q6H PRN for For Pain, (Reported) Patient History Healthcare decision maker Resuscitation status Advanced Directive on File Past Medical/Surgical History Past Medical/Surgical History: (1) Lupus (systemic lupus erythematosus) (2) Hypertensive urgency (3) COPD (chronic obstructive pulmonary disease) (4) Cardiomyopathy (5) Lupus arthritis (6) Pulmonary hypertension (7) CHF (congestive heart failure) Review of Systems Constitutional: Reports: weakness Eye: Reports: no symptoms ENT: Reports: no symptoms Respiratory: Reports: see HPI Cardiovascular: Reports: no symptoms Gastrointestinal: Reports: see HPI Musculoskeletal: Reports: joint pain, joint swelling, muscle stiffness, other - lupus Skin: Reports: dryness Psychiatric: Reports: other - psni attacks Neurological: Reports: no symptoms Endocrine: Reports: no symptoms Hematologic/Lymphatic: Reports: anemia Physical Exam General Appearance: no apparent distress, alert Lines, tubes and drains: peripheral HEENT: normocephalic, atraumatic, anicteric, mucous membranes moist, PERRL Neck: non-tender, supple Respiratory/Chest: lungs clear - with moderate air entry , no accessory muscle use Cardiovascular/Chest: normal peripheral pulses, normal rate, regular rhythm, no JVD Abdomen: normal bowel sounds, soft - diffused epigastric tenderness, no rebound , no guarding Extremities: normal range of motion, non-tender, no calf tenderness, normal capillary refill, no edema Skin Exam: warm/dry Neurologic: no motor/sensory deficits, alert, oriented x 3, responsive Musculoskeletal: normal muscle bulk Last 24 Hour Vital Signs Date Time Temp Pulse Resp B/P (MAP) Pulse Ox O2 Delivery O2 Flow Rate FiO2 01/13/17 10:10 84 18 165/118 100 Room Air 01/13/17 08:12 81 16 159/110 99 Room Air 01/13/17 07:22 97.7 83 17 154/108 100 Room Air 01/13/17 06:00 97.4 88 24 162/113 97 Room Air 01/13/17 05:51 97.7 89 17 157/110 98 Room Air Intake and Output 01/13/17 01/14/17 19:00 07:00 Output Total 1350 ml Balance -1350 ml Output Urine Total 1350 ml Laboratory Tests Test 01/13/17 06:15 01/13/17 07:20 White Blood Count 3.6 K/UL (4.8-10.8) L Red Blood Count 4.47 M/UL (4.20-5.40) Hemoglobin 9.7 G/DL (12.0-16.0) L Hematocrit 33.2 % (37.0-47.0) L Mean Corpuscular Volume 74 FL (80-99) L Mean Corpuscular Hemoglobin 21.6 PG (27.0-31.0) L Mean Corpuscular Hemoglobin Concent 29.1 G/DL (32.0-36.0) L Red Cell Distribution Width 21.8 % (11.6-14.8) H Platelet Count 212 K/UL (150-450) Mean Platelet Volume 8.5 FL (6.5-10.1) Neutrophils (%) (Auto) 57.4 % (45.0-75.0) Lymphocytes (%) (Auto) 33.1 % (20.0-45.0) Monocytes (%) (Auto) 6.7 % (1.0-10.0) Eosinophils (%) (Auto) 2.4 % (0.0-3.0) Basophils (%) (Auto) 0.4 % (0.0-2.0) Sodium Level 137 mEQ/L (135-145) Potassium Level 4.3 mEQ/L (3.4-4.9) Chloride Level 99 mEQ/L (98-107) Carbon Dioxide Level 27 mEQ/L (20-30) Anion Gap 11 (5-15) Blood Urea Nitrogen 24 mg/dL (7-23) H Creatinine 1.0 mg/dL (0.5-0.9) H Estimat Glomerular Filtration Rate > 60 mL/min (>60) Glucose Level 91 mg/dL (74-106) Calcium Level 8.6 mg/dL (8.6-10.2) Total Bilirubin 0.4 mg/dL (0.0-1.2) Aspartate Amino Transf (AST/SGOT) 91 U/L (5-40) H Alanine Aminotransferase (ALT/SGPT) 51 U/L (3-33) H Alkaline Phosphatase 161 U/L (35-104) H Total Protein 7.5 g/dL (6.6-8.7) Albumin 3.2 g/dL (3.5-5.2) L Globulin 4.3 g/dL Albumin/Globulin Ratio 0.7 (1.0-2.7) L Lipase 12 U/L (< 60) Urine Color Pale yellow Urine Appearance Clear Urine pH 7 (4.5-8.0) Urine Specific [place] 1.010 (1.005-1.035) Urine Protein 1+ (NEGATIVE) H Urine Glucose (UA) Negative (NEGATIVE) Urine Ketones Negative (NEGATIVE) Urine Occult Blood 1+ (NEGATIVE) H Urine Nitrite Negative (NEGATIVE) Urine Bilirubin Negative (NEGATIVE) Urine Urobilinogen Normal MG/DL (0.0-1.0) Urine Leukocyte Esterase Negative (NEGATIVE) Urine RBC 0-2 /HPF (0 - 2) Urine WBC 0-2 /HPF (0 - 2) Urine Squamous Epithelial Cells Occasional /LPF Urine Bacteria Occasional /HPF (NONE) Urine HCG, Qualitative Negative Height (Feet): 5 Height (Inches): 5.00 Weight (Pounds): 130 Assessment/Plan Assessment/Plan ASSESSMENT SOB Hypertensive urgency with CHF and cardiomyopathy CHF, possible acute on chronic cardiomyopathy possible panic attack abdominal pain elevated LFT cocaine abuse lupus anemia PLAN OF CARE tele O2 keep sat above 92% Pulmonary toilet prn BP management with prn Clonidine diuresis ECHO ( last ECHO with EF 50%) monitor renal parameters, lytes fup with CXR, pro BNP in am ( get initial pro BNP now) GI eval pain management a/emetic prn diet as tolerated abdominal US negative hepatitis panel trend LFT monitor HH, anemia w/up rheumo eval CLEMENTINA screen DVT , GI prophylaxis case discussed and evaluated by supervising physician Loki (Niels),Rachel WILBURN Jan 13, 2017 11:53
[2017-01-13] MEDS: Metoclopramide 10mg/2ml Inj IVP PRN (12:23)
[2017-01-13] MEDS: Morphine Sulfate 2mg/ml Inj IVP PRN ×3 (12:23→22:35)
[2017-01-13] MEDS ORDERED: LORazepam Inj 2mg/ml 1ml IV PRN (12:30)
[2017-01-13] MEDS ORDERED: Miralax 17gm pkt ORAL PRN (12:30)
[2017-01-13] MEDS ORDERED: DuoNeb 0.5-3(2.5)mg/3ml neb HHN PRN (12:30)
[2017-01-13] MEDS ORDERED: HydrOXYzine 50mg cap ORAL PRN (21:00)
[2017-01-13] MEDS ORDERED: HYDROmorphone 2mg tab ORAL PRN (21:00)
[2017-01-13] MEDS ORDERED: traMADol 50mg tab ORAL PRN (21:00)
[2017-01-13] MEDS: Heparin 5000 units/ml inj SUBQ SCH (22:30)
[2017-01-13] MEDS: Zolpidem 5mg tab ORAL PRN (22:35)
[2017-01-14] VITALS: BP 142/95
[2017-01-14] MEDS: Albuterol 90mcg Inhaler 8gm INH SCH ×5 (02:28→23:47)
[2017-01-14] MEDS: Morphine Sulfate 2mg/ml Inj IVP PRN ×4 (02:58→19:39)
[2017-01-14 04:00] VITALS: BP 152/98
[2017-01-14 07:29] LABS: MEAN CORPUSCULAR HEMOGLOBIN 23.4 PG (27.0-31.0); MEAN CORPUSCULAR HGB CONC 30.1 G/DL (32.0-36.0); MEAN CORPUSCULAR VOLUME 78 FL (80-99); MEAN PLATELET VOLUME 9.4 FL (6.5-10.1); PLATELET COUNT 188 K/UL (150-450); RED BLOOD COUNT 4.32 M/UL (4.20-5.40); RED CELL DISTRIBUTION WIDTH 21.5 % (11.6-14.8); WHITE BLOOD COUNT 3.1 K/UL (4.8-10.8)
[2017-01-14 07:39] LABS: THYROID STIMULATING HORMONE 4.12 uIU/mL (0.300-4.500)
[2017-01-14 07:40] LABS: FERRITIN 50 ng/mL (13-150)
[2017-01-14 07:45] LABS: ALBUMIN/GLOBULIN RATIO 0.7 (1.0-2.7); CALCIUM 8.6 mg/dL (8.6-10.2); CHOLESTEROL/HDL RATIO 2.9 (3.3-4.4); CREATININE 1.3 mg/dL (0.5-0.9); GLOMERULAR FILTRATION RATE 54.9 mL/min (>60); MAGNESIUM 1.5 mg/dL (1.7-2.5); POTASSIUM 3.8 mEQ/L (3.4-4.9); TOTAL PROTEIN 7.2 g/dL (6.6-8.7)
[2017-01-14 07:49] LABS: HEMOLYSIS 5; IRON 41 ug/dL (37-145); TOTAL IRON BINDING CAPACITY 294 ug/dL (250-400)
[2017-01-14 08:00] VITALS: BP 154/96
[2017-01-14] MEDS: Aspirin Baby 81mg ORAL SCH (08:40)
[2017-01-14] MEDS: Furosemide 40mg tab ORAL SCH (08:40)
[2017-01-14] MEDS: Heparin 5000 units/ml inj SUBQ SCH ×2 (08:42→20:47)
[2017-01-14] MEDS: Docusate 100mg cap ORAL SCH (08:43)
[2017-01-14] MEDS ORDERED: Lisinopril 20mg tab ORAL SCH (09:00)
--- NOTE | 2017-01-14 11:16 | GI Initial Consult Note ---
History of Present Illness General Date patient seen: Jan 14, 2017 Time patient seen: 10:00 Reason for Hospitalization: Abdominal Pain Referring physician: TENA GUILLERMO Reason for Consultation: ABDOMINAL PAIN Present Illness HPI Patient's 41-year-old female presented after increased abdominal pain. Patient prior history of cardiomyopathy as well as cocaine abuse. Patient had reported history of lupus. She reported having increased abdominal pain. She reported having some episodes of vomiting. She reported having increased difficulty breathing. Patient stated this was worse with supine position. Patient denied taking any water pills. She states he does not have a primary care physician. GI consult. HPI as noted above. GI consulted for abdominal pain. Patient seen on floor, awake A&Ox4 NAD ambulating c/o of abdominal pain, bloating and constipation. Presents today with abnormal LFTs and positive utox for cocaine. OB negative. US unremarkable. No known history of endoscopic procedures. Home Meds Active Scripts Lisinopril* (LISINOPRIL*) 10 Mg Tablet, 10 MG ORAL DAILY for 30 Days, #30 TAB 1 Refill Prov:BENITA SHARMA M.D. 12/14/16 Nitrofurantoin Monohyd/M-Cryst* (MACROBID 100 MG*) 100 Mg Capsule, 100 MG ORAL EVERY 12 HOURS for 7 Days, #13 CAP Prov:BENITA SHARMA M.D. 12/14/16 Azithromycin* (ZITHROMAX*) 250 Mg Tablet, 250 MG ORAL DAILY for 5 Days, #6 TAB 0 Refills Take two tablets by mouth today, then take one tablet by mouth daily for four days Prov:BENITA SHARMA M.D. 11/11/16 Albuterol Sulfate (VENTOLIN HFA) 18 Gm Hfa.aer.ad, 1 PUFF INH EVERY 6 HOURS for For Cough for 7 Days, #18 GM 0 Refills Prov:BENITA SHARMA M.D. 11/11/16 Diphenhydramine Hcl* (BENADRYL*) 25 Mg Capsule, 25 MG ORAL BID Y for Itching for 7 Days, #14 CAP Prov:BENITA SHARMA M.D. 10/20/16 Cephalexin* (KEFLEX*) 500 Mg Capsule, 500 MG ORAL Q6H for 7 Days, #28 CAP 0 Refills Prov:BENITA SHARMA M.D. 10/20/16 Reported Medications Prednisone* (PREDNISONE*) 20 Mg Tablet, 20 MG ORAL DAILY, TAB 0 Refills 03/04/16 Tramadol Hcl* (ULTRAM*) 50 Mg Tablet, 50 MG ORAL Q6H Y for For Pain, #30 TAB 0 Refills 07/16/15 Aspirin* (ASPIRIN*) 81 Mg Tab.chew, 81 MG ORAL DAILY, TAB 03/04/15 Sennosides (Senna-Gen) 1 Tab Tab, 1 TAB ORAL BID, TAB 03/04/15 Lisinopril* (LISINOPRIL*) 10 Mg Tablet, 20 MG ORAL DAILY, TAB 03/04/15 Hydroxychloroquine Sulfate* (PLAQUENIL*) 200 Mg Tablet, 2 MG ORAL BID, #30 TAB 03/04/15 Hydroxyzine HCl (Hydroxyzine Pamoate) 50 Mg Tab, 50 MG ORAL DAILY Y for Itching , TAB 03/04/15 Hydromorphone Hcl (HYDROMORPHONE HCL) 2 Mg Tablet, 2 MG PO Q4HR Y for For Pain, TAB 03/04/15 Docusate Sodium* (DOCUSATE SODIUM*) 100 Mg Capsule, 20 MG ORAL DAILY, CAP 03/04/15 Pravastatin Sod* (PRAVACHOL*) 20 Mg Tablet, 20 MG ORAL BEDTIME, TAB 03/04/15 Ferrous Sulfate (Feosol) 325 Mg Tablet, 325 MG PO TID, TAB 03/04/15 Med list reviewed/reconciled: Yes Allergies: Coded Allergies: No Known Allergies (Unverified , 10/08/16) Patient History History Provided By: Patient, Medical Record [facility] Narrative Past Medical History: No History, Except For Hx Cardiac Problems: Yes - lupus Hx Hypertension: Yes Hx Pacemaker: No Hx Asthma: No Hx COPD: Yes Hx Diabetes: No Hx Cancer: No Hx Gastrointestinal Problems: No Hx Dialysis: No Hx Neurological Problems: No Hx Cerebrovascular Accident: No Hx Seizures: No Social History: Reports: alcohol use, drug use Review of Systems All Other Systems: negative except mentioned in HPI Physical Exam Vital Signs Date Time Temp Pulse Resp B/P (MAP) Pulse Ox O2 Delivery O2 Flow Rate FiO2 01/13/17 05:51 97.7 89 17 157/110 98 Room Air 01/14/17 00:30 21 Sp02 EP Interpretation: reviewed Labs Laboratory Tests Test 8/28/17 02:10 01/14/17 05:20 Stool Occult Blood Negative (NEGATIVE) Urine Opiates Screen Positive (NEGATIVE) H Urine Barbiturates Screen Negative (NEGATIVE) Phencyclidine (PCP) Screen Positive (NEGATIVE) H Urine Amphetamines Screen Negative (NEGATIVE) Urine Benzodiazepines Screen Negative (NEGATIVE) Urine Cocaine Screen Positive (NEGATIVE) H Urine Marijuana (THC) Screen Negative (NEGATIVE) White Blood Count 3.1 K/UL (4.8-10.8) L Red Blood Count 4.32 M/UL (4.20-5.40) Hemoglobin 10.1 G/DL (12.0-16.0) L Hematocrit 33.5 % (37.0-47.0) L Mean Corpuscular Volume 78 FL (80-99) L Mean Corpuscular Hemoglobin 23.4 PG (27.0-31.0) L Mean Corpuscular Hemoglobin Concent 30.1 G/DL (32.0-36.0) L Red Cell Distribution Width 21.5 % (11.6-14.8) H Platelet Count 188 K/UL (150-450) Mean Platelet Volume 9.4 FL (6.5-10.1) Neutrophils (%) (Auto) % (45.0-75.0) Lymphocytes (%) (Auto) % (20.0-45.0) Monocytes (%) (Auto) % (1.0-10.0) Eosinophils (%) (Auto) % (0.0-3.0) Basophils (%) (Auto) % (0.0-2.0) Neutrophils % (Manual) Pending Lymphocytes % (Manual) Pending Platelet Estimate Pending Platelet Morphology Pending Sodium Level 137 mEQ/L (135-145) Potassium Level 3.8 mEQ/L (3.4-4.9) Chloride Level 98 mEQ/L (98-107) Carbon Dioxide Level 27 mEQ/L (20-30) Anion Gap 12 (5-15) Blood Urea Nitrogen 29 mg/dL (7-23) H Creatinine 1.3 mg/dL (0.5-0.9) H Estimat Glomerular Filtration Rate 54.9 mL/min (>60) Glucose Level 99 mg/dL (74-106) Calcium Level 8.6 mg/dL (8.6-10.2) Magnesium Level 1.5 mg/dL (1.7-2.5) L Iron Level 41 ug/dL (37-145) Total Iron Binding Capacity 294 ug/dL (250-400) Percent Iron Saturation 14 % (15-50) L Unsaturated Iron Binding 253 ug/dL (112-346) Ferritin 50 ng/mL (13-150) Total Bilirubin 0.4 mg/dL (0.0-1.2) Aspartate Amino Transf (AST/SGOT) 51 U/L (5-40) H Alanine Aminotransferase (ALT/SGPT) 44 U/L (3-33) H Alkaline Phosphatase 128 U/L (35-104) H Pro-B-Type Natriuretic Peptide 2744 pg/mL (0-125) H Total Protein 7.2 g/dL (6.6-8.7) Albumin 3.1 g/dL (3.5-5.2) L Globulin 4.1 g/dL Albumin/Globulin Ratio 0.7 (1.0-2.7) L Triglycerides Level 178 mg/dL (< 150) H Cholesterol Level 89 mg/dL (< 200) LDL Cholesterol 22 mg/dL (60-99) L HDL Cholesterol 31 mg/dL (> 60) Cholesterol/HDL Ratio 2.9 (3.3-4.4) L Vitamin B12 Level 316 pg/mL (211-946) RBC Folate Hemolysate Pending Red Blood Cell Folate Pending Thyroid Stimulating Hormone (TSH) 4.120 uIU/mL (0.300-4.500) Anti-Nuclear Antibody Screen Pending Hepatitis A IgM Antibody Pending Hepatitis B Surface Antigen Pending Hepatitis B Core IgM Antibody Pending Hepatitis C Antibody Pending General Appearance: well appearing, no apparent distress Head: normocephalic EENT: PERRL/EOMI, normal ENT inspection Neck: supple Respiratory: normal breath sounds, no respiratory distress Cardiovascular: normal rate Gastrointestinal: normal inspection, non tender, soft, normal bowel sounds Rectal: deferred Musculoskeletal: back normal Neurologic: normal inspection, alert, oriented x3, responsive Psychiatric: normal inspection, judgement/insight normal, memory normal Skin: normal inspection, normal color, no rash, warm/dry, palpation normal Lymphatic: normal inspection, no adenopathy Current Medications Current Medications Medications (Trade) Dose Ordered Sig/[place] Route PRN Reason Start Time Stop Time Status Last Admin Dose Admin Acetaminophen (Tylenol) 650 mg Q4H PRN ORAL Mild Pain (Pain Scale 1-3) 01/13/17 12:30 02/12/17 12:29 Albuterol Sulfate (Proventil MDI) 1 puff EVERY 6 HOURS INH 01/14/17 00:00 02/13/17 00:00 01/14/17 07:32 Albuterol/ Ipratropium (DuoNeb 0.5-3(2.5)mg/3ml) 3 ml Q4H PRN HHN Shortness of Breath 01/13/17 12:30 01/18/17 12:29 Aspirin (ASA) 81 mg DAILY ORAL 01/14/17 09:00 02/13/17 08:59 01/14/17 08:40 Clonidine HCl (Catapres) 0.1 mg Q4H PRN ORAL For High Blood Pressure 01/13/17 21:00 02/12/17 20:59 Clonidine HCl (Catapres) 0.1 mg Q6H PRN ORAL sbp above 160 or DBP above 100 01/13/17 13:00 02/12/17 12:59 01/13/17 16:16 Dextrose (Dextrose 50%) STAT PRN IV Hypoglycemia 01/13/17 12:30 02/12/17 12:29 Diphenhydramine HCl (Benadryl) 25 mg BID PRN ORAL Itching 01/13/17 21:00 02/12/17 20:59 Docusate Sodium (Colace) 200 mg DAILY ORAL 01/14/17 09:00 02/13/17 08:59 Furosemide (Lasix) 40 mg DAILY ORAL 01/14/17 09:00 02/13/17 08:59 01/14/17 08:40 Heparin Sodium (Porcine) (Heparin 5000 units/ml) 5,000 units EVERY 12 HOURS SUBQ 01/13/17 21:00 02/12/17 20:59 01/14/17 08:42 Hydromorphone HCl (Dilaudid) 2 mg Q4HR PRN ORAL for severe pain 01/13/17 21:00 01/20/17 20:59 Hydroxyzine HCl (Atarax) 50 mg DAILY PRN ORAL Itching 01/13/17 21:00 02/12/17 20:59 Lisinopril (Prinivil) 20 mg DAILY ORAL 01/14/17 09:00 02/13/17 08:59 01/14/17 08:41 Lorazepam (Ativan 2mg/ml 1ml) 0.5 mg Q4H PRN IV For Anxiety 01/13/17 12:30 01/20/17 12:29 Metoclopramide HCl (Reglan) 10 mg Q6H PRN IVP Nausea & Vomiting 01/13/17 12:30 02/12/17 12:29 01/13/17 12:23 Morphine Sulfate (Morphine Sulfate) 2 mg Q4H PRN IVP Moderate Pain (Pain Scale 4-6) 01/13/17 12:30 01/20/17 12:29 01/14/17 08:48 Polyethylene Glycol (Miralax) 17 gm DAILYPRN PRN ORAL Constipation 01/13/17 12:30 02/12/17 12:29 Pravastatin Sodium (Pravachol) 20 mg BEDTIME ORAL 01/13/17 21:00 02/12/17 20:59 01/13/17 22:53 Sennosides (Senokot) 1 mg BID ORAL 01/14/17 09:00 02/13/17 08:59 Tramadol HCl (Ultram) 50 mg Q6H PRN ORAL For Pain 01/13/17 21:00 01/20/17 20:59 Zolpidem Tartrate (Ambien) 5 mg QHS PRN ORAL Insomnia 01/13/17 21:00 01/20/17 20:59 01/13/17 22:35 GI: Plan Problems: (1) Constipation (2) LFT elevation (3) Anemia (4) Drug-seeking behavior Plan US reviewed >> unremarkable OB stool negative occasional bloody stools >> most likely hemorrhoidal symptomatic treatment adv diet anemia work up zofran prn pain mgmt IV hydration + electrolyte replacement fu hep panel fu CLEMENTINA follow LFTs fu labs Discussed with Dr. Osuna. Thank you for referring this patient, we will follow. Najma Coburn N.P. Jan 14, 2017 11:16
[2017-01-14 11:40] LABS: ANISOCYTOSIS 2+; BAND NEUTROPHILS % (MANUAL) 0 % (0-8); BASOPHILS % (MANUAL) 0 % (0-2); EOSINOPHILS % (MANUAL) 5 % (0-3); HYPOCHROMASIA 1+; LYMPHOCYTES % (MANUAL) 35 % (20-45); MICROCYTES 1+; NEUTROPHILS % (MANUAL) 54 % (45-75); PLATELET ESTIMATE ADEQUATE; PLATELET MORPHOLOGY NORMAL; TOTAL CELLS COUNTED 100
[2017-01-14 12:00] VITALS: BP 166/91
--- NOTE | 2017-01-14 12:12 | Diagnostic Imaging Report ---
Indication: Dyspnea Comparison: 01/13/17 2 views of the chest obtained. Vascular congestion is present centrally. The heart is enlarged. However findings appear symmetrically improved from the previous day. Impression: Mild interstitial edema significantly improved
--- NOTE | 2017-01-14 13:07 | Pulmonology Progress Note ---
Assessment/Plan Problems: (1) Dyspnea (2) CHF (congestive heart failure) (3) COPD (chronic obstructive pulmonary disease) (4) Pulmonary hypertension (5) Cardiomyopathy (6) HTN (hypertension) Assessment/Plan improving continue diuretics repeat cxr from today is clear dc home if ok with cardiology Subjective ROS Limited/Unobtainable: No Constitutional: Reports: no symptoms HEENT: Repors: no symptoms Respiratory: Reports: no symptoms Allergies: Coded Allergies: No Known Allergies (Unverified , 10/08/16) Objective Last 24 Hour Vital Signs Date Time Temp Pulse Resp B/P (MAP) Pulse Ox O2 Delivery O2 Flow Rate FiO2 01/14/17 12:00 97.3 63 20 166/91 99 Room Air 01/14/17 12:00 67 01/14/17 09:18 98.1 01/14/17 08:41 154/96 01/14/17 08:00 98.1 64 18 154/96 98 Room Air 01/14/17 08:00 65 01/14/17 07:34 76 20 97 Room Air 21 01/14/17 07:33 72 20 95 Room Air 21 01/14/17 04:00 97.0 69 18 152/98 100 Room Air 01/14/17 04:00 70 01/14/17 00:35 74 20 97 Room Air 21 01/14/17 00:30 69 20 95 Room Air 21 01/14/17 00:00 97.9 70 20 142/95 96 Room Air 01/14/17 00:00 69 01/13/17 20:00 77 18 149/101 100 Room Air 01/13/17 20:00 72 01/13/17 18:18 69 137/93 01/13/17 16:16 155/113 01/13/17 16:00 97.9 73 18 155/103 92 Room Air 01/13/17 15:55 74 01/13/17 13:55 97.5 75 18 141/85 92 Room Air 01/13/17 13:36 97.7 85 18 152/93 99 Room Air Intake and Output 01/14/17 01/15/17 19:00 07:00 Intake Total 480 ml Balance 480 ml Intake Oral 480 ml General Appearance: WD/WN HEENT: normocephalic, atraumatic Respiratory/Chest: chest wall non-tender, lungs clear Breasts: no masses Cardiovascular: normal peripheral pulses Abdomen: normal bowel sounds, soft, non tender Genitourinary: normal external genitalia Extremities: no cyanosis Skin: no rash Neurologic/Psychiatric: single corner cutter II-XII grossly normal, no motor/sensory deficits Lymphatic: no groin adenopathy Musculoskeletal: normal muscle bulk Laboratory Tests 01/14/17 02:10: Stool Occult Blood Negative, Urine Opiates Screen PositiveH, Urine Barbiturates Screen Negative, Phencyclidine (PCP) Screen PositiveH, Urine Amphetamines Screen Negative, Urine Benzodiazepines Screen Negative, Urine Cocaine Screen PositiveH, Urine Marijuana (THC) Screen Negative 01/14/17 05:20: White Blood Count 3.1L, Red Blood Count 4.32, Hemoglobin 10.1L, Hematocrit 33.5L , Mean Corpuscular Volume 78L, Mean Corpuscular Hemoglobin 23.4L, Mean Corpuscular Hemoglobin Concent 30.1L, Red Cell Distribution Width 21.5H, Platelet Count 188, Mean Platelet Volume 9.4, Neutrophils (%) (Auto) , Lymphocytes (%) (Auto) , Monocytes (%) (Auto) , Eosinophils (%) (Auto) , Basophils (%) (Auto) , Differential Total Cells Counted 100, Neutrophils % ( Manual) 54, Lymphocytes % (Manual) 35, Monocytes % (Manual) 6, Eosinophils % ( Manual) 5H, Basophils % (Manual) 0, Band Neutrophils 0, Platelet Estimate Adequate, Platelet Morphology Normal, Hypochromasia 1+, Anisocytosis 2+, Microcytosis 1+, Sodium Level 137, Potassium Level 3.8, Chloride Level 98, Carbon Dioxide Level 27, Anion Gap 12, Blood Urea Nitrogen 29H, Creatinine 1.3H , Estimat Glomerular Filtration Rate 54.9, Glucose Level 99, Calcium Level 8.6, Magnesium Level 1.5L, Iron Level 41, Total Iron Binding Capacity 294, Percent Iron Saturation 14L, Unsaturated Iron Binding 253, Ferritin 50, Total Bilirubin 0.4, Aspartate Amino Transf (AST/SGOT) 51H, Alanine Aminotransferase (ALT/SGPT) 44H, Alkaline Phosphatase 128H, Pro-B-Type Natriuretic Peptide 2744H, Total Protein 7.2, Albumin 3.1L, Globulin 4.1, Albumin/Globulin Ratio 0.7L, Triglycerides Level 178H, Cholesterol Level 89, LDL Cholesterol 22L, HDL Cholesterol 31, Cholesterol/HDL Ratio 2.9L, Vitamin B12 Level 316, RBC Folate Hemolysate [Pending], Red Blood Cell Folate [Pending], Thyroid Stimulating Hormone (TSH) 4.120, Anti-Nuclear Antibody Screen [Pending], Hepatitis A IgM Antibody [Pending], Hepatitis B Surface Antigen [Pending], Hepatitis B Core IgM Antibody [Pending], Hepatitis C Antibody [Pending] Current Medications Medications (Trade) Dose Ordered Sig/[place] Route PRN Reason Start Time Stop Time Status Last Admin Dose Admin Acetaminophen (Tylenol) 650 mg Q4H PRN ORAL Mild Pain (Pain Scale 1-3) 01/13/17 12:30 02/12/17 12:29 Albuterol Sulfate (Proventil MDI) 1 puff EVERY 6 HOURS INH 01/14/17 00:00 02/13/17 00:00 01/14/17 07:32 Albuterol/ Ipratropium (DuoNeb 0.5-3(2.5)mg/3ml) 3 ml Q4H PRN HHN Shortness of Breath 01/13/17 12:30 01/18/17 12:29 Aspirin (ASA) 81 mg DAILY ORAL 01/14/17 09:00 02/13/17 08:59 01/14/17 08:40 Clonidine HCl (Catapres) 0.1 mg Q4H PRN ORAL For High Blood Pressure 01/13/17 21:00 02/12/17 20:59 Clonidine HCl (Catapres) 0.1 mg Q6H PRN ORAL sbp above 160 or DBP above 100 01/13/17 13:00 02/12/17 12:59 01/13/17 16:16 Dextrose (Dextrose 50%) STAT PRN IV Hypoglycemia 01/13/17 12:30 02/12/17 12:29 Diphenhydramine HCl (Benadryl) 25 mg BID PRN ORAL Itching 01/13/17 21:00 02/12/17 20:59 Docusate Sodium (Colace) 200 mg DAILY ORAL 01/14/17 09:00 02/13/17 08:59 Furosemide (Lasix) 40 mg DAILY ORAL 01/14/17 09:00 02/13/17 08:59 01/14/17 08:40 Heparin Sodium (Porcine) (Heparin 5000 units/ml) 5,000 units EVERY 12 HOURS SUBQ 01/13/17 21:00 02/12/17 20:59 01/14/17 08:42 Hydromorphone HCl (Dilaudid) 2 mg Q4HR PRN ORAL for severe pain 01/13/17 21:00 01/20/17 20:59 Hydroxyzine HCl (Atarax) 50 mg DAILY PRN ORAL Itching 01/13/17 21:00 02/12/17 20:59 Lisinopril (Prinivil) 20 mg DAILY ORAL 01/14/17 09:00 02/13/17 08:59 01/14/17 08:41 Lorazepam (Ativan 2mg/ml 1ml) 0.5 mg Q4H PRN IV For Anxiety 01/13/17 12:30 01/20/17 12:29 Magnesium Sulfate 100 ml @ 100 mls/hr Q1H IVPB 01/14/17 13:00 01/14/17 14:59 Metoclopramide HCl (Reglan) 10 mg Q6H PRN IVP Nausea & Vomiting 01/13/17 12:30 02/12/17 12:29 01/13/17 12:23 Morphine Sulfate (Morphine Sulfate) 2 mg Q4H PRN IVP Moderate Pain (Pain Scale 4-6) 01/13/17 12:30 01/20/17 12:29 01/14/17 08:48 Polyethylene Glycol (Miralax) 17 gm DAILYPRN PRN ORAL Constipation 01/13/17 12:30 02/12/17 12:29 Pravastatin Sodium (Pravachol) 20 mg BEDTIME ORAL 01/13/17 21:00 02/12/17 20:59 01/13/17 22:53 Sennosides (Senokot) 1 mg BID ORAL 01/14/17 09:00 02/13/17 08:59 Tramadol HCl (Ultram) 50 mg Q6H PRN ORAL For Pain 01/13/17 21:00 01/20/17 20:59 Zolpidem Tartrate (Ambien) 5 mg QHS PRN ORAL Insomnia 01/13/17 21:00 01/20/17 20:59 01/13/17 22:35 TENA HUTCHISON Jan 14, 2017 13:07
[2017-01-14 16:07] VITALS: BP 147/86
--- NOTE | 2017-01-14 19:40 | Cardiology Progress Note ---
Assessment/Plan Assessment/Plan [id number] Objective Last 24 Hour Vital Signs Date Time Temp Pulse Resp B/P (MAP) Pulse Ox O2 Delivery O2 Flow Rate FiO2 01/14/17 19:23 72 20 96 Room Air 21 01/14/17 19:22 70 20 94 Room Air 21 01/14/17 16:07 97.9 75 18 147/86 94 Room Air 01/14/17 16:00 76 01/14/17 15:57 166/88 01/14/17 14:51 97.6 01/14/17 13:38 78 16 96 Room Air 21 01/14/17 13:36 78 16 95 Room Air 21 01/14/17 12:00 97.3 63 20 166/91 99 Room Air 01/14/17 12:00 67 01/14/17 08:41 154/96 01/14/17 08:00 98.1 64 18 154/96 98 Room Air 01/14/17 08:00 65 01/14/17 07:34 76 20 97 Room Air 01/14/17 07:33 72 20 95 Room Air 01/14/17 04:00 97.0 69 18 152/98 100 Room Air 01/14/17 04:00 70 01/14/17 00:35 74 20 97 Room Air 01/14/17 00:30 69 20 95 Room Air 01/14/17 00:00 97.9 70 20 142/95 96 Room Air 01/14/17 00:00 69 01/13/17 20:00 77 18 149/101 100 Room Air 01/13/17 20:00 72 Intake and Output 01/14/17 01/15/17 18:59 06:59 Intake Total 1560 ml Balance 1560 ml Intake Oral 1560 ml # Voids 5 Laboratory Tests Test 01/14/17 02:10 01/14/17 05:20 Stool Occult Blood Negative (NEGATIVE) Urine Opiates Screen Positive (NEGATIVE) H Urine Barbiturates Screen Negative (NEGATIVE) Phencyclidine (PCP) Screen Positive (NEGATIVE) H Urine Amphetamines Screen Negative (NEGATIVE) Urine Benzodiazepines Screen Negative (NEGATIVE) Urine Cocaine Screen Positive (NEGATIVE) H Urine Marijuana (THC) Screen Negative (NEGATIVE) White Blood Count 3.1 K/UL (4.8-10.8) L Red Blood Count 4.32 M/UL (4.20-5.40) Hemoglobin 10.1 G/DL (12.0-16.0) L Hematocrit 33.5 % (37.0-47.0) L Mean Corpuscular Volume 78 FL (80-99) L Mean Corpuscular Hemoglobin 23.4 PG (27.0-31.0) L Mean Corpuscular Hemoglobin Concent 30.1 G/DL (32.0-36.0) L Red Cell Distribution Width 21.5 % (11.6-14.8) H Platelet Count 188 K/UL (150-450) Mean Platelet Volume 9.4 FL (6.5-10.1) Neutrophils (%) (Auto) % (45.0-75.0) Lymphocytes (%) (Auto) % (20.0-45.0) Monocytes (%) (Auto) % (1.0-10.0) Eosinophils (%) (Auto) % (0.0-3.0) Basophils (%) (Auto) % (0.0-2.0) Differential Total Cells Counted 100 Neutrophils % (Manual) 54 % (45-75) Lymphocytes % (Manual) 35 % (20-45) Monocytes % (Manual) 6 % (1-10) Eosinophils % (Manual) 5 % (0-3) H Basophils % (Manual) 0 % (0-2) Band Neutrophils 0 % (0-8) Platelet Estimate Adequate Platelet Morphology Normal Hypochromasia 1+ Anisocytosis 2+ Microcytosis 1+ Sodium Level 137 mEQ/L (135-145) Potassium Level 3.8 mEQ/L (3.4-4.9) Chloride Level 98 mEQ/L (98-107) Carbon Dioxide Level 27 mEQ/L (20-30) Anion Gap 12 (5-15) Blood Urea Nitrogen 29 mg/dL (7-23) H Creatinine 1.3 mg/dL (0.5-0.9) H Estimat Glomerular Filtration Rate 54.9 mL/min (>60) Glucose Level 99 mg/dL (74-106) Calcium Level 8.6 mg/dL (8.6-10.2) Magnesium Level 1.5 mg/dL (1.7-2.5) L Iron Level 41 ug/dL (37-145) Total Iron Binding Capacity 294 ug/dL (250-400) Percent Iron Saturation 14 % (15-50) L Unsaturated Iron Binding 253 ug/dL (112-346) Ferritin 50 ng/mL (13-150) Total Bilirubin 0.4 mg/dL (0.0-1.2) Aspartate Amino Transf (AST/SGOT) 51 U/L (5-40) H Alanine Aminotransferase (ALT/SGPT) 44 U/L (3-33) H Alkaline Phosphatase 128 U/L (35-104) H Pro-B-Type Natriuretic Peptide 2744 pg/mL (0-125) H Total Protein 7.2 g/dL (6.6-8.7) Albumin 3.1 g/dL (3.5-5.2) L Globulin 4.1 g/dL Albumin/Globulin Ratio 0.7 (1.0-2.7) L Triglycerides Level 178 mg/dL (< 150) H Cholesterol Level 89 mg/dL (< 200) LDL Cholesterol 22 mg/dL (60-99) L HDL Cholesterol 31 mg/dL (> 60) Cholesterol/HDL Ratio 2.9 (3.3-4.4) L Vitamin B12 Level 316 pg/mL (211-946) RBC Folate Hemolysate Pending Red Blood Cell Folate Pending Thyroid Stimulating Hormone (TSH) 4.120 uIU/mL (0.300-4.500) Anti-Nuclear Antibody Screen Pending Hepatitis A IgM Antibody Pending Hepatitis B Surface Antigen Pending Hepatitis B Core IgM Antibody Pending Hepatitis C Antibody Pending DAYNA JAUREGUI Jan 14, 2017 19:40
--- NOTE | 2017-01-14 19:43 | Cardiology Report ---
APPROVED REPORT EKG Measurement Heart [id number] Normal sinus rhythm Possible Left atrial enlargement Left ventricular hypertrophy with repolarization abnormality Prolonged QT Abnormal ECG
[2017-01-14 20:31] VITALS: BP 145/94
[2017-01-15] VITALS (7 sets, daily range): BP systolic 121–155; BP diastolic 75–103
[2017-01-15] MEDS: Zolpidem 5mg tab ORAL PRN ×2 (00:13→22:34)
[2017-01-15] MEDS: Morphine Sulfate 2mg/ml Inj IVP PRN ×6 (00:14→22:24)
--- NOTE | 2017-01-15 05:00 | Consultation ---
DATE OF CONSULTATION: 01/14/2017 CARDIOLOGY CONSULTATION CONSULTING PHYSICIAN: Oswaldo Quesada M.D. REFERRING PHYSICIAN: Suzanne Ricardo M.D. REASON FOR REFERRAL: Congestive heart failure. HISTORY OF PRESENT ILLNESS: This is a 41-year-old female, who has been admitted to the hospital because of shortness of breath. The patient indicates she has had some recent hospitalization at another facility and was discharged on medication for blood pressure, has not been taking any diuretics. She used some cocaine the day before she came into the hospital and then she was short of breath and came into the hospital. Dyspnea on exertion. Dyspnea at rest. History of waking up at night. No dizziness or lightheadedness. No palpitation at times are noted. PAST MEDICAL HISTORY: Positive for history of congestive heart failure, acute on chronic, mild cardiomyopathy, pulmonary hypertension, systemic hypertension, anemia, systemic lupus erythematosus, cocaine abuse, and history of noncompliance with medications. ALLERGIES: To morphine but that is not true. SOCIAL HISTORY: She smokes, drinks and uses cocaine. REVIEW OF SYSTEMS: Gastrointestinal: She has had some bloody stools. Genitourinary: Negative. Pulmonary: Positive coughing. Constitutional: Negative. Neurologic: Negative. PHYSICAL EXAMINATION: GENERAL: Shows to be young female, in no respiratory distress. VITAL SIGNS: Includes blood pressure anywhere between 147/86 and 166/98. NECK: Supple. No jugular venous distention. LUNGS: Clear to auscultation percussion. CARDIAC: Examination S1 is normal. S2 is normal. Regular rate and rhythm. No heaves, thrills, or gallops noted. ABDOMEN: Soft. There is some tenderness. No guarding. No rigidity. No rebound. EXTREMITIES: There is no clubbing, cyanosis, or edema. LABORATORY AND DIAGNOSTIC DATA: EKG shows normal sinus rhythm, some nonspecific T-wave abnormalities. Echocardiogram performed shows ejection fraction 50%, preliminary diastolic dysfunction, moderate to severe tricuspid regurgitation with PA pressure of 60. The rest of the blood tests show white count 3.1, hemoglobin 10, and platelet count 188,000. Sodium is 137, potassium 3.8, chloride 98, bicarbonate 27, BUN 29, creatinine 1.3 up from 1.3 and a glucose of 99. Magnesium 1.5. Liver function tests are mildly abnormal. ProBNP of 2800 down to 2700. Cardiac enzymes were not checked during this hospitalization. Previously all have been normal throughout 2015 and 2016. It is of note, that the patient had perfusion imaging back in 2016 that showed actually it was nondiagnostic because of partial imaging performed only. ASSESSMENT: 1. Diastolic heart failure. 2. Hypertension, poorly controlled. 3. Medication noncompliance. 4. Cocaine abuse history. 5. Systemic lupus erythematosus. Dr. Ricardo, this patient was seen in cardiac consultation. Importance of compliance with medication was discussed with the patient. The patient should be on some KAREN inhibitors and some diuretics as well, avoidance of drug use discussed with the patient. Lisinopril should be increased to 40 mg daily. The patient will be noncompliant with medications, so at the least, repetitive medication should be used as much as possible to control this patient's blood pressure. I do agree with continuation of some statins at the present time and aspirin. No beta-blockers in light of the fact that she is using cocaines that may be more dangerous. We will start her on some calcium channel blockers as well. Oswaldo Quesada M.D. DR: BARBARA JOB#: [id number] CC:
[2017-01-15 06:36] LABS: BASOPHILS % (AUTO) 0.3 % (0.0-2.0); EOSINOPHILS % (AUTO) 3.7 % (0.0-3.0); LYMPHOCYTES % (AUTO) 25.8 % (20.0-45.0); MEAN CORPUSCULAR HEMOGLOBIN 21.2 PG (27.0-31.0); MEAN CORPUSCULAR HGB CONC 27.8 G/DL (32.0-36.0); MEAN CORPUSCULAR VOLUME 76 FL (80-99); MONOCYTES % (AUTO) 6.7 % (1.0-10.0); NEUTROPHILS % (AUTO) 63.5 % (45.0-75.0); PLATELET COUNT 186 K/UL (150-450); RED BLOOD COUNT 4.74 M/UL (4.20-5.40); RED CELL DISTRIBUTION WIDTH 21.7 % (11.6-14.8); WHITE BLOOD COUNT 3.5 K/UL (4.8-10.8)
[2017-01-15 07:08] LABS: ANION GAP 11 (5-15); CALCIUM 8.8 mg/dL (8.6-10.2); CARBON DIOXIDE 28 mEQ/L (20-30); CHLORIDE 100 mEQ/L (98-107); GLOMERULAR FILTRATION RATE > 60 mL/min (>60); HEMOLYSIS 0; MAGNESIUM 1.6 mg/dL (1.7-2.5); POTASSIUM 4.2 mEQ/L (3.4-4.9); SODIUM 139 mEQ/L (135-145)
[2017-01-15] MEDS: Albuterol 90mcg Inhaler 8gm INH SCH ×3 (07:50→20:22)
[2017-01-15] MEDS: Furosemide 40mg tab ORAL SCH (09:52)
[2017-01-15] MEDS: Aspirin Baby 81mg ORAL SCH (09:52)
[2017-01-15] MEDS: Lisinopril 20mg tab ORAL SCH (09:55)
[2017-01-15] MEDS: Docusate 100mg cap ORAL SCH (09:55)
[2017-01-15] MEDS: Metoclopramide 10mg/2ml Inj IVP PRN (09:56)
[2017-01-15] MEDS: Heparin 5000 units/ml inj SUBQ SCH ×2 (09:57→21:39)
--- NOTE | 2017-01-15 10:59 | GI Progress Note ---
Assessment/Plan Problems: (1) Drug abuse ICD Codes: F19.10 - Other psychoactive substance abuse, uncomplicated SNOMED: 74094229 (2) Constipation ICD Codes: K59.00 - Constipation, unspecified SNOMED: 38836048 (3) Anemia ICD Codes: D64.9 - Anemia, unspecified SNOMED: 680311444 (4) Drug-seeking behavior ICD Codes: Z72.89 - Other problems related to lifestyle SNOMED: 889955503 (5) LFT elevation ICD Codes: R79.89 - Other specified abnormal findings of blood chemistry SNOMED: 151631074 Status: stable Status Narrative Discussed with Dr. Osuna. Assessment/Plan US reviewed >> unremarkable OB stool negative occasional bloody stools >> most likely hemorrhoidal utox positive >> phencyclidine, cocaine symptomatic treatment adv diet anemia work up zofran prn pain mgmt IV hydration + electrolyte replacement fu hep panel fu CLEMENTINA follow LFTs fu labs Subjective Subjective generalized pain Objective Last 24 Hour Vital Signs Date Time Temp Pulse Resp B/P (MAP) Pulse Ox O2 Delivery O2 Flow Rate FiO2 01/15/17 10:30 97.9 01/15/17 09:55 121/75 01/15/17 09:00 67 121/75 01/15/17 08:08 70 18 95 Room Air 01/15/17 08:00 97.9 67 21 121/75 96 Room Air 01/15/17 07:50 70 20 94 Room Air 01/15/17 04:00 74 01/15/17 04:00 97.9 74 20 142/98 97 Room Air 01/15/17 00:00 97.0 75 20 147/95 95 Room Air 01/15/17 00:00 77 01/14/17 23:48 76 20 95 Room Air 21 01/14/17 23:47 72 20 93 Room Air 21 01/14/17 20:46 77 145/94 01/14/17 20:31 97.0 77 20 145/94 97 Room Air 01/14/17 20:00 74 01/14/17 19:23 72 20 96 Room Air 01/14/17 19:22 70 20 94 Room Air 01/14/17 16:07 97.9 75 18 147/86 94 Room Air 01/14/17 16:00 76 01/14/17 15:57 166/88 8/28/17 13:38 78 16 96 Room Air 21 01/14/17 13:36 78 16 95 Room Air 21 01/14/17 12:00 97.3 63 20 166/91 99 Room Air 01/14/17 12:00 67 Intake and Output 01/15/17 01/16/17 19:00 07:00 Intake Total 360 ml Balance 360 ml Intake Oral 360 ml Laboratory Tests Test 01/15/17 06:10 White Blood Count 3.5 K/UL (4.8-10.8) L Red Blood Count 4.74 M/UL (4.20-5.40) Hemoglobin 10.0 G/DL (12.0-16.0) L Hematocrit 36.0 % (37.0-47.0) L Mean Corpuscular Volume 76 FL (80-99) L Mean Corpuscular Hemoglobin 21.2 PG (27.0-31.0) L Mean Corpuscular Hemoglobin Concent 27.8 G/DL (32.0-36.0) L Red Cell Distribution Width 21.7 % (11.6-14.8) H Platelet Count 186 K/UL (150-450) Mean Platelet Volume 9.0 FL (6.5-10.1) Neutrophils (%) (Auto) 63.5 % (45.0-75.0) Lymphocytes (%) (Auto) 25.8 % (20.0-45.0) Monocytes (%) (Auto) 6.7 % (1.0-10.0) Eosinophils (%) (Auto) 3.7 % (0.0-3.0) H Basophils (%) (Auto) 0.3 % (0.0-2.0) Sodium Level 139 mEQ/L (135-145) Potassium Level 4.2 mEQ/L (3.4-4.9) Chloride Level 100 mEQ/L (98-107) Carbon Dioxide Level 28 mEQ/L (20-30) Anion Gap 11 (5-15) Blood Urea Nitrogen 20 mg/dL (7-23) Creatinine 1.0 mg/dL (0.5-0.9) H Estimat Glomerular Filtration Rate > 60 mL/min (>60) Glucose Level 103 mg/dL (74-106) Calcium Level 8.8 mg/dL (8.6-10.2) Magnesium Level 1.6 mg/dL (1.7-2.5) L Height (Feet): 5 Height (Inches): 5.00 Weight (Pounds): 130 General Appearance: no apparent distress, alert, thin Cardiovascular: normal rate Respiratory/Chest: normal breath sounds, no respiratory distress Abdominal Exam: normal bowel sounds, non tender, soft Extremities: normal range of motion Najma Coburn N.P. Jan 15, 2017 10:59
--- NOTE | 2017-01-15 11:15 | Cardiology Progress Note ---
Assessment/Plan Assessment/Plan 1. Diastolic heart failure. 2. Hypertension, poorly controlled. 3. Medication noncompliance. 4. Cocaine abuse history. 5. Systemic lupus erythematosus seem improved importance of avoidance of cocaine adn compliance with meds again discussed with pt prescription written for lasix norvasc and lisinopril to assure compliance Subjective Cardiovascular: Denies: chest pain, lightheadedness Respiratory: Reports: shortness of breath Gastrointestinal/Abdominal: Denies: abdominal pain Genitourinary: Denies: burning Objective Last 24 Hour Vital Signs Date Time Temp Pulse Resp B/P (MAP) Pulse Ox O2 Delivery O2 Flow Rate FiO2 01/15/17 10:30 97.9 01/15/17 09:55 121/75 01/15/17 09:00 67 121/75 01/15/17 08:08 70 18 95 Room Air 01/15/17 08:00 97.9 67 21 121/75 96 Room Air 01/15/17 08:00 64 01/15/17 07:50 70 20 94 Room Air 01/15/17 04:00 74 01/15/17 04:00 97.9 74 20 142/98 97 Room Air 01/15/17 00:00 97.0 75 20 147/95 95 Room Air 01/15/17 00:00 77 01/14/17 23:48 76 20 95 Room Air 01/14/17 23:47 72 20 93 Room Air 01/14/17 20:46 77 145/94 01/14/17 20:31 97.0 77 20 145/94 97 Room Air 01/14/17 20:00 74 01/14/17 19:23 72 20 96 Room Air 01/14/17 19:22 70 20 94 Room Air 01/14/17 16:07 97.9 75 18 147/86 94 Room Air 01/14/17 16:00 76 01/14/17 15:57 166/88 01/14/17 13:38 78 16 96 Room Air 01/14/17 13:36 78 16 95 Room Air 01/14/17 12:00 97.3 63 20 166/91 99 Room Air 01/14/17 12:00 67 General Appearance: no apparent distress, alert Neck: supple Cardiovascular: normal rate, regular rhythm Respiratory/Chest: lungs clear, crackles/rales - left base min Abdomen: normal bowel sounds, non tender, soft Extremities: no swelling Intake and Output 01/15/17 01/16/17 19:00 07:00 Intake Total 360 ml Balance 360 ml Intake Oral 360 ml Laboratory Tests Test 01/15/17 06:10 White Blood Count 3.5 K/UL (4.8-10.8) L Red Blood Count 4.74 M/UL (4.20-5.40) Hemoglobin 10.0 G/DL (12.0-16.0) L Hematocrit 36.0 % (37.0-47.0) L Mean Corpuscular Volume 76 FL (80-99) L Mean Corpuscular Hemoglobin 21.2 PG (27.0-31.0) L Mean Corpuscular Hemoglobin Concent 27.8 G/DL (32.0-36.0) L Red Cell Distribution Width 21.7 % (11.6-14.8) H Platelet Count 186 K/UL (150-450) Mean Platelet Volume 9.0 FL (6.5-10.1) Neutrophils (%) (Auto) 63.5 % (45.0-75.0) Lymphocytes (%) (Auto) 25.8 % (20.0-45.0) Monocytes (%) (Auto) 6.7 % (1.0-10.0) Eosinophils (%) (Auto) 3.7 % (0.0-3.0) H Basophils (%) (Auto) 0.3 % (0.0-2.0) Sodium Level 139 mEQ/L (135-145) Potassium Level 4.2 mEQ/L (3.4-4.9) Chloride Level 100 mEQ/L (98-107) Carbon Dioxide Level 28 mEQ/L (20-30) Anion Gap 11 (5-15) Blood Urea Nitrogen 20 mg/dL (7-23) Creatinine 1.0 mg/dL (0.5-0.9) H Estimat Glomerular Filtration Rate > 60 mL/min (>60) Glucose Level 103 mg/dL (74-106) Calcium Level 8.8 mg/dL (8.6-10.2) Magnesium Level 1.6 mg/dL (1.7-2.5) L DAYNA JAUREGUI Jan 15, 2017 11:15
--- NOTE | 2017-01-15 12:45 | Cardiology Report ---
APPROVED REPORT EXAM: Two-dimensional and M-mode echocardiogram with Doppler and color Doppler. INDICATION SOB M-Mode DIMENSIONS IVSd1.8 (0.7-1.1cm)Left Atrium (MM)3.8 (1.6-4.0cm) LVDd5.5 (3.5-5.6cm)Aortic Root2.9 (2.0-3.7cm) PWd1.0 (0.7-1.1cm)Aortic Cusp Exc.1.8 (1.5-2.0cm) LVDs4.5 (2.5-4.0cm) PWs1.5 cm Four chambers enlargement. Low normal left ventricular systolic function and wall motion. Left ventricular ejection fraction estimated to be 35-40%. Moderate left ventricular hypertrophy. No evidence of pericardial fat or effusion. Severe left atrial and moderate right atrial enlargement by 2D. Mild right ventricular enlargement by 2D. Focal aortic valve sclerosis with adequate cusp excursion Thickened mitral valve leaflets with normal excursion. Mitral annulus and aortic root calcification. Pulmonic valve not well visualized. Normal tricuspid valve structure. IVC dilated at 2.7cm with no physiological collapse. RA pressure of 20mmHg. A color flow and spectral Doppler study was performed and revealed: No aortic regurgitation. Moderate mitral regurgitation one eccentric jet . Left ventricular diastolic dysfunction grade 3. Moderate to severe tricuspid regurgitation. Tricuspid systolic velocities suggests peak right ventricular systolic pressure of 60 mmHg Consistent with severe pulmonary hypertension.
[2017-01-15] MEDS: Magnesium Oxide 400mg tab ORAL SCH ×2 (13:45→18:15)
[2017-01-15 14:26] LABS: HEMATOCRIT 34.1 % (34.0-46.6)
--- NOTE | 2017-01-15 18:55 | Pulmonology Progress Note ---
Assessment/Plan Problems: (1) Dyspnea (2) CHF (congestive heart failure) (3) COPD (chronic obstructive pulmonary disease) (4) Pulmonary hypertension (5) Cardiomyopathy (6) HTN (hypertension) Assessment/Plan improving continue diuretics repeat cxr fwas clear dc home if ok with cardiology pt refused to go home today, doens't feel well troday Subjective ROS Limited/Unobtainable: No Constitutional: Reports: no symptoms HEENT: Repors: no symptoms Respiratory: Reports: no symptoms Allergies: Coded Allergies: No Known Allergies (Unverified , 10/08/16) Objective Last 24 Hour Vital Signs Date Time Temp Pulse Resp B/P (MAP) Pulse Ox O2 Delivery O2 Flow Rate FiO2 01/15/17 16:00 68 01/15/17 16:00 97.7 71 22 139/87 95 Room Air 01/15/17 15:10 97.9 01/15/17 13:30 73 18 96 Room Air 21 01/15/17 13:26 73 18 95 Room Air 21 01/15/17 12:00 97.9 70 21 155/93 99 Room Air 01/15/17 12:00 63 01/15/17 09:55 121/75 01/15/17 09:00 67 121/75 01/15/17 08:08 70 18 95 Room Air 21 01/15/17 08:00 97.9 67 21 121/75 96 Room Air 01/15/17 08:00 64 01/15/17 07:50 70 20 94 Room Air 21 01/15/17 04:00 74 01/15/17 04:00 97.9 74 20 142/98 97 Room Air 01/15/17 00:00 97.0 75 20 147/95 95 Room Air 01/15/17 00:00 77 01/14/17 23:48 76 20 95 Room Air 21 01/14/17 23:47 72 20 93 Room Air 21 01/14/17 20:46 77 145/94 01/14/17 20:31 97.0 77 20 145/94 97 Room Air 01/14/17 20:00 74 01/14/17 19:23 72 20 96 Room Air 21 01/14/17 19:22 70 20 94 Room Air 21 Intake and Output 01/15/17 01/16/17 19:00 07:00 Intake Total 660 ml Balance 660 ml Intake Oral 660 ml General Appearance: WD/WN, no acute distress HEENT: normocephalic, anicteric Respiratory/Chest: chest wall non-tender, lungs clear Abdomen: normal bowel sounds, soft, non tender Skin: no lesions Neurologic/Psychiatric: featherer II-XII grossly normal, no motor/sensory deficits Laboratory Tests 01/15/17 06:10: White Blood Count 3.5L, Red Blood Count 4.74, Hemoglobin 10.0L, Hematocrit 36.0L , Mean Corpuscular Volume 76L, Mean Corpuscular Hemoglobin 21.2L, Mean Corpuscular Hemoglobin Concent 27.8L, Red Cell Distribution Width 21.7H, Platelet Count 186, Mean Platelet Volume 9.0, Neutrophils (%) (Auto) 63.5, Lymphocytes (%) (Auto) 25.8, Monocytes (%) (Auto) 6.7, Eosinophils (%) (Auto) 3.7H, Basophils (%) (Auto) 0.3, Sodium Level 139, Potassium Level 4.2, Chloride Level 100, Carbon Dioxide Level 28, Anion Gap 11, Blood Urea Nitrogen 20, Creatinine 1.0H, Estimat Glomerular Filtration Rate > 60, Glucose Level 103, Calcium Level 8.8, Magnesium Level 1.6L Current Medications Medications (Trade) Dose Ordered Sig/Gurmeet Route PRN Reason Start Time Stop Time Status Last Admin Dose Admin Acetaminophen (Tylenol) 650 mg Q4H PRN ORAL Mild Pain (Pain Scale 1-3) 01/13/17 12:30 02/12/17 12:29 Albuterol Sulfate (Proventil MDI) 1 puff EVERY 6 HOURS INH 01/14/17 00:00 02/13/17 00:00 01/15/17 13:26 Albuterol/ Ipratropium (DuoNeb 0.5-3(2.5)mg/3ml) 3 ml Q4H PRN HHN Shortness of Breath 01/13/17 12:30 01/18/17 12:29 Amlodipine Besylate (Norvasc) 2.5 mg DAILY ORAL 01/14/17 20:00 02/13/17 19:59 01/14/17 20:46 Aspirin (ASA) 81 mg DAILY ORAL 01/14/17 09:00 02/13/17 08:59 01/15/17 09:52 Clonidine HCl (Catapres) 0.1 mg Q4H PRN ORAL For High Blood Pressure 01/13/17 21:00 02/12/17 20:59 Clonidine HCl (Catapres) 0.1 mg Q6H PRN ORAL sbp above 160 or DBP above 100 01/13/17 13:00 02/12/17 12:59 01/14/17 15:57 Dextrose (Dextrose 50%) STAT PRN IV Hypoglycemia 01/13/17 12:30 02/12/17 12:29 Diphenhydramine HCl (Benadryl) 25 mg BID PRN ORAL Itching 01/13/17 21:00 02/12/17 20:59 Docusate Sodium (Colace) 200 mg DAILY ORAL 01/14/17 09:00 02/13/17 08:59 01/15/17 09:55 Furosemide (Lasix) 40 mg DAILY ORAL 01/14/17 09:00 02/13/17 08:59 01/15/17 09:52 Heparin Sodium (Porcine) (Heparin 5000 units/ml) 5,000 units EVERY 12 HOURS SUBQ 01/13/17 21:00 02/12/17 20:59 01/15/17 09:57 Hydromorphone HCl (Dilaudid) 2 mg Q4HR PRN ORAL for severe pain 01/13/17 21:00 01/20/17 20:59 Hydroxyzine HCl (Atarax) 50 mg DAILY PRN ORAL Itching 01/13/17 21:00 02/12/17 20:59 Lisinopril (Prinivil) 40 mg DAILY ORAL 01/15/17 09:00 02/14/17 08:59 01/15/17 09:55 Lorazepam (Ativan 2mg/ml 1ml) 0.5 mg Q4H PRN IV For Anxiety 01/13/17 12:30 01/20/17 12:29 Magnesium Oxide (Mag-Ox 400mg) 400 mg THREE TIMES A DAY ORAL 01/15/17 13:00 01/18/17 12:59 01/15/17 18:15 Metoclopramide HCl (Reglan) 10 mg Q6H PRN IVP Nausea & Vomiting 01/13/17 12:30 02/12/17 12:29 01/15/17 09:56 Morphine Sulfate (Morphine Sulfate) 2 mg Q4H PRN IVP Moderate Pain (Pain Scale 4-6) 01/13/17 12:30 01/20/17 12:29 01/15/17 18:16 Polyethylene Glycol (Miralax) 17 gm DAILYPRN PRN ORAL Constipation 01/13/17 12:30 02/12/17 12:29 Pravastatin Sodium (Pravachol) 20 mg BEDTIME ORAL 01/13/17 21:00 02/12/17 20:59 01/14/17 20:45 Sennosides (Senokot) 1 mg BID ORAL 01/14/17 09:00 02/13/17 08:59 01/15/17 18:15 Tramadol HCl (Ultram) 50 mg Q6H PRN ORAL For Pain 01/13/17 21:00 01/20/17 20:59 Zolpidem Tartrate (Ambien) 5 mg QHS PRN ORAL Insomnia 01/13/17 21:00 01/20/17 20:59 01/15/17 00:13 TENA HUTCHISON Jan 15, 2017 18:55
[2017-01-16] MEDS: Albuterol 90mcg Inhaler 8gm INH SCH ×3 (01:35→13:06)
[2017-01-16] MEDS: Morphine Sulfate 2mg/ml Inj IVP PRN ×3 (03:29→12:51)
[2017-01-16 04:49] VITALS: BP 146/95
[2017-01-16 08:08] VITALS: BP 147/93
[2017-01-16 08:29] LABS: MEAN CORPUSCULAR HEMOGLOBIN 21.9 PG (27.0-31.0); MEAN CORPUSCULAR HGB CONC 28.5 G/DL (32.0-36.0); MEAN CORPUSCULAR VOLUME 77 FL (80-99); MEAN PLATELET VOLUME 9.3 FL (6.5-10.1); PLATELET COUNT 190 K/UL (150-450); RED BLOOD COUNT 4.81 M/UL (4.20-5.40); RED CELL DISTRIBUTION WIDTH 21.8 % (11.6-14.8); WHITE BLOOD COUNT 2.8 K/UL (4.8-10.8)
[2017-01-16 08:43] LABS: ANION GAP 9 (5-15); CALCIUM 9.1 mg/dL (8.6-10.2); CARBON DIOXIDE 30 mEQ/L (20-30); CHLORIDE 99 mEQ/L (98-107); GLOMERULAR FILTRATION RATE > 60 mL/min (>60); HEMOLYSIS 1; POTASSIUM 4.1 mEQ/L (3.4-4.9); SODIUM 138 mEQ/L (135-145)
[2017-01-16] MEDS: Aspirin Baby 81mg ORAL SCH (09:00)
[2017-01-16] MEDS: Docusate 100mg cap ORAL SCH (09:00)
[2017-01-16 09:23] LABS: ANISOCYTOSIS 2+; BAND NEUTROPHILS % (MANUAL) 0 % (0-8); BASOPHILS % (MANUAL) 0 % (0-2); EOSINOPHILS % (MANUAL) 3 % (0-3); HYPOCHROMASIA 1+; LYMPHOCYTES % (MANUAL) 38 % (20-45); MICROCYTES 1+; NEUTROPHILS % (MANUAL) 48 % (45-75); PLATELET ESTIMATE ADEQUATE; PLATELET MORPHOLOGY NORMAL; TOTAL CELLS COUNTED 100
[2017-01-16 09:24] LABS: OVALOCYTES OCCASIONAL
[2017-01-16 09:25] LABS: POLYCHROMASIA OCCASIONAL
[2017-01-16] MEDS: Lisinopril 20mg tab ORAL SCH (09:33)
[2017-01-16] MEDS: Furosemide 40mg tab ORAL SCH (09:34)
[2017-01-16] MEDS: Magnesium Oxide 400mg tab ORAL SCH ×2 (09:45→12:50)
[2017-01-16] MEDS: Heparin 5000 units/ml inj SUBQ SCH (09:46)
--- NOTE | 2017-01-16 10:16 | GI Progress Note ---
Assessment/Plan Problems: (1) Drug abuse ICD Codes: F19.10 - Other psychoactive substance abuse, uncomplicated SNOMED: 26988211 (2) Constipation ICD Codes: K59.00 - Constipation, unspecified SNOMED: 47015194 (3) Anemia ICD Codes: D64.9 - Anemia, unspecified SNOMED: 969439624 (4) Drug-seeking behavior ICD Codes: Z72.89 - Other problems related to lifestyle SNOMED: 581515653 (5) LFT elevation ICD Codes: R79.89 - Other specified abnormal findings of blood chemistry SNOMED: 976675445 Status: stable Status Narrative Discussed with Dr. Osuna. Assessment/Plan US reviewed >> unremarkable OB stool negative occasional bloody stools >> most likely hemorrhoidal utox positive >> phencyclidine, cocaine CLEMENTINA elevation >> hx of lupus ok for DC per GI standpoint symptomatic treatment adv diet anemia work up zofran prn pain mgmt IV hydration + electrolyte replacement fu hep panel follow LFTs fu labs Subjective Subjective generalized pain Objective Last 24 Hour Vital Signs Date Time Temp Pulse Resp B/P (MAP) Pulse Ox O2 Delivery O2 Flow Rate FiO2 01/16/17 09:33 65 147/93 01/16/17 09:33 147/93 01/16/17 09:14 97.5 01/16/17 08:08 97.5 65 20 147/93 99 Room Air 01/16/17 07:46 66 20 98 Nasal Cannula 24 01/16/17 07:44 65 20 99 Room Air 01/16/17 04:49 97.7 84 20 146/95 Room Air 01/16/17 04:00 63 01/16/17 00:35 72 20 97 Room Air 01/16/17 00:30 68 20 95 Room Air 01/16/17 00:00 79 01/15/17 23:56 97.7 78 20 144/103 97 Room Air 01/15/17 20:50 97.7 80 19 127/78 Room Air 01/15/17 20:00 79 01/15/17 19:35 74 20 95 Room Air 01/15/17 19:30 72 20 94 Room Air 21 01/15/17 16:00 68 01/15/17 16:00 97.7 71 22 139/87 95 Room Air 01/15/17 13:30 73 18 96 Room Air 21 01/15/17 13:26 73 18 95 Room Air 21 01/15/17 12:00 97.9 70 21 155/93 99 Room Air 01/15/17 12:00 63 Intake and Output 01/16/17 01/17/17 19:00 07:00 Intake Total 480 ml Balance 480 ml Intake Oral 480 ml Laboratory Tests Test 01/16/17 07:25 White Blood Count 2.8 K/UL (4.8-10.8) L Red Blood Count 4.81 M/UL (4.20-5.40) Hemoglobin 10.6 G/DL (12.0-16.0) L Hematocrit 37.0 % (37.0-47.0) Mean Corpuscular Volume 77 FL (80-99) L Mean Corpuscular Hemoglobin 21.9 PG (27.0-31.0) L Mean Corpuscular Hemoglobin Concent 28.5 G/DL (32.0-36.0) L Red Cell Distribution Width 21.8 % (11.6-14.8) H Platelet Count 190 K/UL (150-450) Mean Platelet Volume 9.3 FL (6.5-10.1) Neutrophils (%) (Auto) % (45.0-75.0) Lymphocytes (%) (Auto) % (20.0-45.0) Monocytes (%) (Auto) % (1.0-10.0) Eosinophils (%) (Auto) % (0.0-3.0) Basophils (%) (Auto) % (0.0-2.0) Differential Total Cells Counted 100 Neutrophils % (Manual) 48 % (45-75) Lymphocytes % (Manual) 38 % (20-45) Monocytes % (Manual) 11 % (1-10) H Eosinophils % (Manual) 3 % (0-3) Basophils % (Manual) 0 % (0-2) Band Neutrophils 0 % (0-8) Platelet Estimate Adequate Platelet Morphology Normal Polychromasia Occasional Hypochromasia 1+ Anisocytosis 2+ Microcytosis 1+ Ovalocytes Occasional Sodium Level 138 mEQ/L (135-145) Potassium Level 4.1 mEQ/L (3.4-4.9) Chloride Level 99 mEQ/L (98-107) Carbon Dioxide Level 30 mEQ/L (20-30) Anion Gap 9 (5-15) Blood Urea Nitrogen 19 mg/dL (7-23) Creatinine 1.0 mg/dL (0.5-0.9) H Estimat Glomerular Filtration Rate > 60 mL/min (>60) Glucose Level 91 mg/dL (74-106) Calcium Level 9.1 mg/dL (8.6-10.2) Height (Feet): 5 Height (Inches): 5.00 Weight (Pounds): 132 General Appearance: no apparent distress, alert, thin Cardiovascular: normal rate Respiratory/Chest: normal breath sounds, no respiratory distress Abdominal Exam: normal bowel sounds, non tender, soft Extremities: normal range of motion Najma Coburn N.P. Jan 16, 2017 10:16
[2017-01-16 11:40] VITALS: BP 145/94
[2017-01-16 15:44] VITALS: BP 140/80
--- NOTE | 2017-01-17 17:27 | Discharge Summary ---
Discharge Summary Hospital Course Date of Admission Jan 13, 2017 at 08:06 Date of Discharge Jan 16, 2017 at 17:44 Admitting Diagnosis congestive heart failure MELANY Ho is a 41 year old female who was admitted on Jan 13, 2017 at 08:06 for Congestive Heart Failure Hospital Course [id number] Discharge Discharge Disposition Patient was discharged to Home (01) Discharge Diagnoses: Carolann Rizo NP Jan 17, 2017 17:27
--- NOTE | 2017-01-18 01:45 | Discharge Summary 2 SIG ---
DATE OF ADMISSION: 01/13/2017 DATE OF DISCHARGE: 01/16/2017 CONSULTANTS: 1. Oswaldo Quesada M.D. 2. Joshua Osuna M.D. BRIEF HOSPITAL COURSE: The patient is a 41-year-old female with history of lupus, hypertension, cardiomyopathy, and cocaine abuse, presented to ED complaining of abdominal pain with nausea and vomiting. Denies blood in emesis. There was no diarrhea, however, had occasional bright red blood in the stool. She was recently hospitalized at [facility] and was told to have liver problems and also reported to have panic attacks. She admits to cigarette smoking and cocaine use. Denied ETOH abuse. On evaluation at ED, workup showed WBC 3.6, hemoglobin was 9.7 with hematocrit 33. LFTs were elevated. Creatinine 1 and BUN 21. Chest x-ray done showed worsening pulmonary vascular congestion/CHF with possible right pleural effusion. EKG was in normal sinus rhythm with no acute ischemic changes. Troponin was negative. She was then admitted to telemetry for CHF and hypertensive urgency. Blood pressure was 157/110. She was given blood pressure management including lisinopril, which was increased to 40 mg daily. She was continued with aspirin and pravastatin. No beta-blockers in light of the fact that she is using cocaine. She was given Norvasc instead. She had an echocardiogram that showed ejection fraction of 35% to 40% with RVSP 60 consistent with severe pulmonary hypertension and moderate mitral regurgitation. She was given Lasix for CHF. Abdominal ultrasound was negative. Hepatitis panel was pending. LFTs down trended. Repeat chest x-ray showed significantly improved interstitial edema. She was eventually discharged home. FINAL DIAGNOSES: 1. Acute on chronic diastolic heart failure. 2. Hypertension, poorly controlled. 3. Medication noncompliance. 4. Cocaine abuse history. 5. Systemic lupus erythematosus. 6. Chronic obstructive pulmonary disease. 7. Pulmonary hypertension. 8. Cardiomyopathy. 9. Anemia. 10. Constipation. 11. Elevated liver function tests. 12. Drug-seeking behavior. 13. Occasional bloody stools, most likely hemorrhoidal. DISCHARGE DISPOSITION: The patient was discharged home. DISCHARGE MEDICATIONS: Refer to medication list. ACTIVITY: As tolerated. FOLLOWUP: Follow up with PMD in a week. Suzanne Ricardo M.D. I have been assigned to dictate discharge summary on this account and I was not involved in the patient's management. Carolann Rizo N.P. DR: DEBO JOB#: [id number] CC:
== END 2017-01-16 17:44 | disposition home or self-care (01) | DRG 194 ==
LOC: EDBD 05:56 → EMR 06:11 → 2W 08:06 → EDBEDREQ 13:08 → 2E 18:59
DX: I11.0 Hypertensive heart disease with heart failure (principal); M32.9 Systemic lupus erythematosus, unspecified; I42.9 Cardiomyopathy, unspecified; F14.10 Cocaine abuse, uncomplicated; J44.9 Chronic obstructive pulmonary disease, unspecified; I16.0 Hypertensive urgency; D64.9 Anemia, unspecified; Z76.5 Malingerer [conscious simulation]; I50.33 Acute on chronic diastolic (congestive) heart failure; K59.00 Constipation, unspecified; R79.89 Other specified abnormal findings of blood chemistry; F17.210 Nicotine dependence, cigarettes, uncomplicated; K64.9 Unspecified hemorrhoids; Z91.19 Patient's noncompliance with other medical treatment and regimen
CPT/HCPCS: 36415; 71010; 71020; 76700; 80048; 80053; 80061; 80300; 81003; 81025; 82270; 82607; 82728; 82747; 83540; 83550; 83690; 83735; 83880; 84443; 85007; 85025; 86039; 86705; 86709; 86803; 87340; 93005; 93306; 94640; 99285; J2405; J2765